=== PATIENT | male | born 1975 | race Hispanic/Latino ===

== ENCOUNTER 2017-08-10 07:44 | Emergency (ER) | payer OTHER ==
[~2017-08-10] VITALS: Ht 170.2 cm; Wt 81.6 kg
[~2017-08-10 07:44] MED LIST: VITAMIN B121000 MC2 PO; VITAMIN D1000 IU PO; ZOFRAN 4 MG TABL4 MG PO
[2017-08-10 08:53] LABS: ABSOLUTE BASOPHIL COUNT 0 /CUMM (0.0-0.2); ABSOLUTE EOSINOPHIL COUNT 0 /CUMM (0.0-0.7); ABSOLUTE GRANULOCYTE CT 5.7 /CUMM (1.4-6.5); ABSOLUTE LYMPH COUNT 0.8 /CUMM (1.2-3.4); BASOPHIL % 0.2 % (0.0-2.0); EOSINOPHIL % 0.2 % (0-5); GRANULOCYTE % 76.2 % (42.2-75.2); HEMATOCRIT 45.6 % (42-52); MEAN CORPUSCULAR HGB 30.2 PG (27.0-31.0); MEAN CORPUSCULAR HGB CONC 33.8 G/DL (33.0-37.0); MEAN CORPUSCULAR VOLUME 89.4 FL (80.0-94.0); MEAN PLATELET VOLUME 8.2 FL (7.4-10.4); PLATELET COUNT 194 /CUMM (130-400); RBC DISTRIBUTION WIDTH 13.4 % (11.5-14.5); WHITE BLOOD CELL COUNT 7.5 /CUMM (4.8-10.8)
--- NOTE | 2017-08-10 09:40 | ED GI/GU/ABDOMINAL COMPLAINT ---
See Addendum History of Present Illness General Chief Complaint: Nausea, Vomiting, Diarrhea Stated Complaint: NVD XS 1 WEEK WHITNEY Source: patient, family, old records Exam Limitations: no limitations Vital Signs & Intake/Output Vital Signs & Intake/Output Vital Signs Date Time Temp Pulse Resp B/P B/P Pulse O2 O2 Flow FiO2 Mean Ox Delivery Rate 08/10 1341 100.3 112 20 107/67 98 08/10 1125 98.1 111 18 115/69 96 08/10 0756 98.8 106 18 113/79 96 Room Air Allergies Coded Allergies: meperidine (From DEMEROL) (Intermediate, HIVES 08/10/17) Reconcile Medications Atorvastatin Calcium 40 MG TABLET 1 TAB PO DAILY chol (Reported) Cholecalciferol (Vitamin D3) 1,000 UNIT TABLET 1 TAB PO DAILY SUPLLEMENT ( Reported) Ciprofloxacin HCl (Cipro) 500 MG TABLET 1 TAB PO BID diarrhea Cyanocobalamin (Vitamin B12) 1,000 MCG TAB 1 TAB PO DAILY SUPPLEMENT ( Reported) Famotidine (Pepcid) 20 MG TABLET 1 TAB PO BID stomach upset Hyoscyamine Sulfate (Levsin-Sl) 0.125 MG TAB.SUBL 1-2 TAB SL Q4P PRN abdominal cramps Loperamide HCl (Imodium A-D) 2 MG TABLET 0 PO SEE ADMIN CRITERIA PRN diarrhea 1 tab after each loose stool up to 7 per day Metronidazole (Flagyl) 500 MG TABLET 1 TAB PO BID giardia Ondansetron (Zofran Odt) 4 MG TAB.RAPDIS 1 TAB SL TID nausea Ondansetron (Zofran 4 MG Tablet) 4 MG TAB 1 TAB PO Q6 NAUSEA Triage Note: REPORTS N/V/D X 2 WEEKS. ALSO REPORTS HEADACHE THAT STARTED YESTERDAY WITH NO IMPROVEMENT. HE ALSO HAS 2 DOGS THAT WERE RECENTLY DIAGNOSED WITH GIARDIA AND HE IS WONDERING IF HE MAY HAVE CONTRACTED THE SAME. ALSO REPORTS INTERMITTENT PAIN IN HIS RLQ. Triage Nurses Notes Reviewed? yes Onset: Last week Duration: day(s):, constant, continues in ED, getting worse Timing: recent history Quality/Severity: cramping, mild Location: generalized abdomen Radiation: no radiation Activities at Onset: eating Prior Abdominal Problems: none Past Sexual History: Unobtainable at this time Modifying Factors: Worsens With: eating. Associated Symptoms: abdominal pain, diarrhea, fever/chills, loss of appetite, nausea/vomiting HPI: 1 week prior to admission patient complains of frequent loose watery stool abdominal cramping decreased appetite fever chills. Reports eating shrim melquiades landin and his dogs being diagnosed with giardia recently. Shortly prior to admission he awoke with worsening chills nausea vomiting abdominal cramping. He denies chest pain cough shortness of breath headache dysuria rash bleeding recent antibiotics recent travel. Past History Travel History Traveled to [place] past 21 day No Medical History Any Pertinent Medical History? see below for history Cardiovascular: HIGH CHOLESTEROL Surgical History Surgical History: non-contributory Psychosocial History What is your primary language Barbadian Tobacco Use: Never used Family History Hx Contributory? No Review of Systems Review of Systems Constitutional: Reports: see HPI, malaise. EENTM: Reports: no symptoms. Respiratory: Reports: no symptoms. Cardiovascular: Reports: no symptoms. GI: Reports: see HPI, abdominal pain, diarrhea, nausea, vomiting. Genitourinary: Reports: no symptoms. Musculoskeletal: Reports: no symptoms. Skin: Reports: no symptoms. Neurological/Psychological: Reports: no symptoms. Hematologic/Endocrine: Reports: no symptoms. Immunologic/Allergic: Reports: no symptoms. All Other Systems: Reviewed and Negative Physical Exam Physical Exam General Appearance: well developed/nourished, alert, awake, anxious, moderate distress, thin Head: atraumatic, normal appearance Eyes: Bilateral: normal appearance, PERRL, EOMI, normal inspection. Ears, Nose, Throat, Mouth: hearing grossly normal, moist mucous membrane Neck: normal inspection, supple, full range of motion, normal alignment Respiratory: normal breath sounds, chest non-tender, no respiratory distress, quiet respiration, lungs clear Cardiovascular: regular rate/rhythm, normal peripheral pulses, norml femoral pulses equa Peripheral Pulses: 4+ carotid (R), 4+ carotid (L) Gastrointestinal: normal bowel sounds, soft, non-tender, no organomegaly Male Genitals: normal genitalia Back: normal inspection, normal range of motion, no vertebral tenderness Extremities: normal range of motion, no ligament instability Neurologic/Psych: no motor/sensory deficits, awake, alert, oriented x 3, normal gait, 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 No Sepsis Present: No Sepsis Focused Exam Completed? No Progress Differential Diagnosis: diverticulitis, gastritis, pancreatitis, PUD/GERD Plan of Care: Orders Procedure Date/time Status STOOL: R/O YERSINIA 08/10 824 Active STOOL:R/O VIBRIO 08/10 824 Active CULTURE,STOOL 08/10 824 Active OVA AND PARASITE ANTIGENS 08/10 824 Active LIPASE 08/10 824 Complete COMPREHENSIVE METABOLIC PANEL 08/10 824 Complete CBC WITHOUT DIFFERENTIAL 08/10 824 Complete Laboratory Tests 08/10/17 0835: Anion Gap 11, Estimated GFR > 60, BUN/Creatinine Ratio 12.7, Glucose 109 H, Calcium 9.3, Total Bilirubin 0.9, AST 18, ALT 37, Alkaline Phosphatase 90, Total Protein 7.3, Albumin 4.2, Globulin 3.1, Albumin/Globulin Ratio 1.4, Lipase 117, CBC w Diff NO MAN DIFF REQ, RBC 5.10, MCV 89.4, MCH 30.2, MCHC 33.8, RDW 13.4, MPV 8.2, Gran % 76.2 H, Lymphocytes % 10.4 L, Monocytes % 13.0 H, Eosinophils % 0.2, Basophils % 0.2, Absolute Granulocytes 5.7, Absolute Lymphocytes 0.8 L, Absolute Monocytes 1.0 H, Absolute Eosinophils 0, Absolute Basophils 0 Microbiology 08/10 112 STOOL: Vibrio Culture - RECD 08/11 1119 STOOL: Yersinia Culture - RECD 08/11 1119 STOOL: Stool Culture - RECD 08/10 824 STOOL: Cryptosporidium Antigen - ORD 08/10 824 STOOL: Giardia Antigen (DANIEL) - ORD Initial ED EKG: none Departure Departure Time of Disposition: 1314 Disposition: HOME OR SELF CARE Condition: Stable Clinical Impression Primary Impression: Nausea, vomiting, and diarrhea Secondary Impressions: Dehydration Referrals: Reagan POZO,Hugo Coon (PCP/Family) Additional Instructions: Clear liquids for 12-24 hours until better Departure Forms: Customer Survey General Discharge Information Prescriptions: Current Visit Scripts Ciprofloxacin HCl (Cipro) 1 TAB PO BID #14 TAB Metronidazole (Flagyl) 1 TAB PO BID #14 TAB Hyoscyamine Sulfate (Levsin-Sl) 1-2 TAB SL Q4P PRN abdominal cramps #30 TAB Famotidine (Pepcid) 1 TAB PO BID #30 TAB Ondansetron (Zofran Odt) 1 TAB SL TID #10 TAB Loperamide HCl (Imodium A-D) 0 PO SEE ADMIN CRITERIA PRN diarrhea #24 TAB 1 tab after each loose stool up to 7 per day Loperamide HCl (Imodium A-D) 0 PO SEE ADMIN CRITERIA PRN diarrhea #24 TAB 1 tab after each loose stool up to 7 per day
[2017-08-10] MEDS ORDERED: ZOFRAN ODT4 M1 SL (13:21)
[2017-08-10] MEDS ORDERED: LEVSIN-SL0.125 MG SL (13:21)
[2017-08-10] MEDS ORDERED: IMODIUM A-D2 M1 PO (13:21)
[2017-08-10] MEDS ORDERED: FLAGYL500 MG PO (13:21)
[2017-08-10] MEDS ORDERED: PEPCID20 M1 PO (13:21)
[2017-08-10] MEDS ORDERED: CIPRO500 M1 PO (13:21)
[2017-08-10 13:41] VITALS: BP 107/67
[2017-08-10] MEDS ORDERED: ATORVASTATIN CA40 M1 PO (13:42)
== END 2017-08-10 14:11 ==
LOC: ERH 07:44
PROVIDERS: Emergency Medicine
DX: R11.2 Nausea with vomiting, unspecified (principal); R19.7 Diarrhea, unspecified; E86.0 Dehydration
CPT/HCPCS: 87045; 87328; 87329; 96361; 96374; 99291; J2405

== ENCOUNTER 2017-08-19 13:20 | Inpatient (IN) | payer OTHER ==
[~2017-08-19] VITALS: Ht 170.2 cm; Wt 81.6 kg
[~2017-08-19 13:20] MED LIST changes: +ATORVASTATIN CA40 M1 PO; +CIPRO500 M1 PO; +FLAGYL500 MG PO; +IMODIUM A-D2 M1 PO; +LEVSIN-SL0.125 MG SL; +PEPCID20 M1 PO; +VITAMIN B-121000 MC3 PO; -VITAMIN B121000 MC2 PO; -VITAMIN D1000 IU PO; +VITAMIN D31000 UNI2 PO; +ZOFRAN ODT4 M1 SL
--- NOTE | 2017-08-19 13:25 | ED GI/GU/ABDOMINAL COMPLAINT ---
History of Present Illness General Chief Complaint: Nausea, Vomiting, Diarrhea Stated Complaint: +N,+V,+D Source: patient Exam Limitations: no limitations Vital Signs & Intake/Output Vital Signs & Intake/Output Vital Signs Date Time Temp Pulse Resp B/P B/P Pulse O2 O2 Flow FiO2 Mean Ox Delivery Rate 08/19 1928 100.8 113 20 83/54 95 Room Air 08/19 1809 99.6 113 20 112/53 95 Nasal 3.0L Cannula 08/19 1807 95 Nasal Cannula 08/19 1745 115 92/58 08/19 1730 113 89/66 /08 1715 110 88/50 /08 1700 108 87/49 /08 1645 115 97/53 /08 1633 130 95/45 96 08 1620 103.0 08 1600 127 82/47 91 Room Air 08/19 1549 103.0 123 18 89/44 94 Room Air Room Air 08/19 1323 100.2 130 20 92/57 95 Room Air Allergies Coded Allergies: meperidine (From DEMEROL) (Intermediate, HIVES 08/10/17) Reconcile Medications Atorvastatin Calcium 40 MG TABLET 1 TAB PO DAILY chol (Reported) Cholecalciferol (Vitamin D3) 1,000 UNIT TABLET 1 TAB PO DAILY VITAMIN SUPPORT (Reported) Cyanocobalamin (Vitamin B-12) 1,000 MCG TABLET 1 TAB PO DAILY VITAMIN SUPPORT (Reported) Triage Nurses Notes Reviewed? yes Onset: Abrupt Duration: week(s): (3) Timing: recent history Quality/Severity: moderate, severe No Modifying Factors: none HPI: 42 year old male presents to the emergency room for diarrhea. He states he has been having diarrhea for three weeks. He came to the ER last week and was given a seven day course of cipro for which he stopped with two days left because he was told by Dr. Kirk that his cultures were negative. He states he felt better over the weekend but was still having diarrhea. This morning at 3:00 AM he suddenly got worse, had more diarrhea and has been having multiple episodes since. He states his diarrhea was was green at first then it became a gel-like translucent brown. His current diarrhea has a malodorous smell to it which it had not had before. He has associated nausea, vomiting, headache, chills, fever, and is unable to keep food down. He denies recent travel, sick contact, blood in his stool, blood in his vomit, or abdominal pain. He was camping a few weeks back in [place]. (Urbano Sampson) Past History Travel History Traveled to [place] past 21 day No Medical History Any Pertinent Medical History? see below for history Cardiovascular: HIGH CHOLESTEROL Surgical History Surgical History: non-contributory Psychosocial History What is your primary language Yemeni Family History Hx Contributory? No (Urbano Sampson) Review of Systems Review of Systems Constitutional: Reports: see HPI. EENTM: Reports: no symptoms. Respiratory: Reports: no symptoms. Cardiovascular: Reports: no symptoms. GI: Reports: see HPI. Genitourinary: Reports: no symptoms. Musculoskeletal: Reports: no symptoms. Skin: Reports: no symptoms. Neurological/Psychological: Reports: no symptoms. Hematologic/Endocrine: Reports: no symptoms. Immunologic/Allergic: Reports: no symptoms. All Other Systems: Reviewed and Negative (Urbano Sampson) Physical Exam Physical Exam General Appearance: well developed/nourished, mild distress Head: atraumatic, normal appearance Eyes: Bilateral: normal appearance. Ears, Nose, Throat, Mouth: hearing grossly normal Neck: normal inspection, full range of motion Respiratory: no respiratory distress, decreased breath sounds (bibasilar) Cardiovascular: regular rate/rhythm, tachycardia Gastrointestinal: soft, non-tender Back: normal inspection Extremities: normal range of motion Neurologic/Psych: no motor/sensory deficits, awake, alert, oriented x 3 Skin: intact, normal color, no rashes Core Measures ACS in differential dx? No Sepsis Present: No Sepsis Focused Exam Completed? No (Urbano Sampson) ED Sepsis Exam Date of Focused Sepsis Exam: 08/19/17 Time of Focused Sepsis Exam: 1630 (approx) Sepsis Cardiac Exam: Tachycardia Sepsis Resp Exam: CTA Sepsis Cap Refill Exam: <2 Sec Sepsis Peripheral Pulse Exam: Normal Sepsis Peripheral Pulse Location: Radial Sepsis Skin Color Exam: Normal for Ethnicity Skin Temp/Moisture Exam: Warm/Dry (Urbano Sampson) Progress Differential Diagnosis: appendicitis, diverticulitis, C. difficile colitis, Campylobacter, pneumonia, sepsis, Plan of Care: Orders Procedure Date/time Status Nothing by Mouth 08/20 B Active CULTURE,STOOL 05/08 1931 Active HIV (Reflex to HIVCQ) 08/19 1931 Active Add-on Test (ER Only) 08/19 1711 Active Patient Data 08/19 1659 Active EKG 08/19 1627 Active LACTIC ACID 08/19 1625 Complete CULTURE,STOOL 08/19 1613 Active ED Holding Orders 08/19 1611 Active Admit to inpatient 08/19 1611 Active Code Status 08/19 1611 Active OVA AND PARASITE ANTIGENS 08/19 1340 Active C.DIFFICILE 08/19 1340 Active Intake & Output 08/19 1330 Active BLOOD CULTURE 08/19 1325 Active LIPASE 08/19 1325 Complete LACTIC ACID 08/19 1325 Complete COMPREHENSIVE METABOLIC PANEL 08/19 1325 Complete CBC WITHOUT DIFFERENTIAL 08/19 1325 Complete AMYLASE 08/19 1325 Complete Isolation 08/19 UNK Active Current Medications Sig/Luli Start time Last Medication Dose Stop Time Status Admin Azithromycin 500 MG DAILY 08/20 0900 UNVr (Zithromax) Sodium Chloride 250 ML (Normal Saline 0.9%) Metronidazole 500 MG IQ8 08/20 0000 UNVr (Flagyl) N/A 1 UNIT (No Carrier) Vancomycin HCl 500 MG Q6 08/19 2359 UNVr Metoclopramide HCl 10 MG ONCE ONE 08/19 1915 UNVr (Reglan) 08/19 191 Azithromycin 500 MG ONCE ONE 08/19 1615 CAN (Zithromax) 08/19 1714 Sodium Chloride 250 ML (Normal Saline 0.9%) Vancomycin HCl 1,000 MG ONCE ONE 08/19 1615 CAN Sodium Chloride 250 ML 08/19 171 (Normal Saline 0.9%) Laboratory Tests 08/19/17 1600: Lactic Acid 1.4 08/19/17 1402: Anion Gap 14, Estimated GFR > 60, BUN/Creatinine Ratio 12.3, Glucose 129 H, Lactic Acid 1.8, Calcium 8.1 L, Total Bilirubin 1.1, AST 41, ALT 137 H, Alkaline Phosphatase 63, Total Protein 6.0 L, Albumin 3.4 L, Globulin 2.6, Albumin/Globulin Ratio 1.3, Amylase 87, Lipase 98, CBC w Diff MAN DIFF ORDERED, RBC 4.96, MCV 89.6, MCH 30.4, MCHC 33.9, RDW 13.5, MPV 8.1, Gran % 94.5 H, Lymphocytes % 2.7 L, Monocytes % 2.7, Eosinophils % 0, Basophils % 0.1, Absolute Granulocytes 18.6 H, Segmented Neutrophils 78 H, Band Neutrophils 16 H, Absolute Lymphocytes 0.5 L, Lymphocytes 4 L, Monocytes 1 L, Absolute Monocytes 0.5, Absolute Eosinophils 0, Basophils 1, Absolute Basophils 0, Platelet Estimate ADEQUATE, Normocytic RBCs VERIFIED, Normochromic RBCs VERIFIED Microbiology 08/19 1931 STOOL: Stool Culture - ORD 08/19 1613 STOOL: Clostridium difficile Toxin A & B - RECD 08/19 1613 STOOL: Stool Culture - RECD 08/19 1600 BLOOD: Blood Culture - RECD 08/19 1402 BLOOD: Blood Culture - RECD 08/19 1340 GI: Cryptosporidium Antigen - ORD 08/19 1340 GI: Giardia Antigen (DANIEL) - ORD Diagnostic Imaging: Viewed by Me: Radiology Read, CT Scan. Discussed w/RAD: Radiology Read, CT Scan. Radiology Impression: PATIENT: MEGAN WHELAN PRESENT AGE : 42 PATIENT ACCOUNT NO: [id number] : 74 LOCATION: [facility] ORDERING PHYSICIAN: Urbano BROCK SERVICE DATE: 08/19/17 EXAM TYPE: RAD - XRY-CHEST XRAY, TWO VIEWS EXAMINATION: XR CHEST CLINICAL INFORMATION: Diminished breast sounds on the right side. COMPARISON: CT scan of the abdomen and pelvis dated 08/19/2017. TECHNIQUE: 2 views of the chest were obtained. FINDINGS: The cardiomediastinal silhouette is within normal limits in size. Lungs bilaterally are symmetrically expanded and demonstrate minimal bibasilar atelectatic changes. No focal consolidation, effusion or pneumothorax is seen. Bony structures are unremarkable. IMPRESSION: Mild bibasilar subsegmental atelectasis. DICTATED BY: Sherrie Alejandre MD DATE/TIME DICTATED:08/19/171822 GRAPHICS PRODUCTION SPECIALIST:AUDREY DATE/TIME TRANSCRIBED:08/19/171822 CONFIDENTIAL, DO NOT COPY WITHOUT APPROPRIATE AUTHORIZATION. <Electronically signed in Other Vendor System> SIGNED BY: Sherrie Alejandre MD 08/19/171826 Initial ED EKG: normal sinus rhythm, rate (106) Comments: 08/19/2017 3:59:13 PM Patient has gotten 2 L of IV normal saline. Another 2 L have been ordered. IV Tylenol ordered. Infectious disease was consult sudden change in waiting to hear back. Patient is alert and oriented and mentating. Patient be placed Q15 minute vital signs for evaluation of blood pressure. 08/19/2017 4:08:[address] mendoza from infectious disease. He agrees that at this time we will cover the patient with vancomycin and azithromycin. Stool samples should be sent off before antibiotics started. Patient was seen and evaluated by Dr. Parra as well. (Urbano Sampson) Comments: I saw and personally examined the patient and I agree with the PAs evaluation. He has had profound diarrhea and fever. He was empirically treated with Flagyl and Cipro. Now comes in with hypotension related to volume loss. Infectious disease consultation was obtained. He was treated with 5 L of IV fluids. He is being admitted to the ICU for further care. (Fidel GARCIA,Braden Cruz) Departure Departure Disposition: STILL A PATIENT Condition: Stable Clinical Impression Primary Impression: Sepsis Referrals: Reagan POZO,Hugo Coon (PCP/Family) Departure Forms: Customer Survey General Discharge Information Admission Note Spoke With: Emmanuel Beckman MD Documentation of Exam: Documentation of any treatments & extenuating circumstances including Concerns Regarding Discharge (functional status, medication knowledge or non-compliance, living conditions, etc.) that warrant an admission rather than observation: IV fluid. IV antibiotics. Infectious disease consultation. Patient hypotensive here in the emergency room. He will require aggressive IV hydration. Medically not safe for discharge. dr bailey saw pt. recommends PO vancomycin, IV azithromycin, IV rocephin, IV flagyl. will follow stool samples. (Urbano Sampson) PA/SPRINKLER DRIVER Co-Sign Statement Statement: ED Attending supervision documentation- [X] I saw and evaluated the patient. I have also reviewed all the pertinent lab results and diagnostic results. I agree with the findings and the plan of care as documented in the PA's/SPRINKLER DRIVER's documentation. [] I have reviewed the ED Record and agree with the PA's/SPRINKLER DRIVER's documentation. [] Additions or exceptions (if any) to the PAs/SPRINKLER DRIVER's note and plan are summarized below: [] Patient tested positive for Campylobacter. He has positive vomiting, headache, and lethargy. He is hypotensive in the Emergency Department. He is currently receiving IV fluids. Infectious disease consultation was requested (Braden Parra DO) Critical Care Note Critical Care Note Critical Care Time: 30-74 min (45) (Miguel BROCK,Urbano)
[2017-08-19 14:21] LABS: ABSOLUTE BASOPHIL COUNT 0 /CUMM (0.0-0.2); ABSOLUTE EOSINOPHIL COUNT 0 /CUMM (0.0-0.7); ABSOLUTE GRANULOCYTE CT 18.6 /CUMM (1.4-6.5); ABSOLUTE LYMPH COUNT 0.5 /CUMM (1.2-3.4); ABSOLUTE MONOCYTE COUNT 0.5 /CUMM (0.10-0.60); BASOPHIL % 0.1 % (0.0-2.0); EOSINOPHIL % 0 % (0-5); GRANULOCYTE % 94.5 % (42.2-75.2); HEMATOCRIT 44.5 % (42-52); MEAN CORPUSCULAR HGB 30.4 PG (27.0-31.0); MEAN CORPUSCULAR HGB CONC 33.9 G/DL (33.0-37.0); MEAN CORPUSCULAR VOLUME 89.6 FL (80.0-94.0); MEAN PLATELET VOLUME 8.1 FL (7.4-10.4); PLATELET COUNT 227 /CUMM (130-400); RBC DISTRIBUTION WIDTH 13.5 % (11.5-14.5); RED BLOOD CELL CT 4.96 /CUMM (4.70-6.10); WHITE BLOOD CELL COUNT 19.7 /CUMM (4.8-10.8)
--- NOTE | 2017-08-19 16:59 | History & Physical ---
Shahana POZO,[facility] 08/19/17 3268: General Information and HPI MD Statement: I have seen and personally examined MEGAN WELSH and documented this H&P. The patient is a 42 year old M who presented with a patient stated chief complaint of [nausea, vomiting, diarrhea]. Source of Information: patient Exam Limitations: no limitations History of Present Illness: 42-year-old gentleman with past medical history of hyperlipidemia came to [facility] with complaints of nausea, vomiting, diarrhea for the past 3 weeks According to the patient and his patient was in usual state of health until 3 weeks ago. Patient has 2 dogs one of them had diarrhea and found to have Giardia and both were treated. Since the patient had diarrhea about 2-3 loose bowel movements every day associated with abdominal pain on and off. Patient came to [facility] on 10 August and was sent home with Samreen and Sanjuanita. Patient was seen by his primary care physician Dr. Coker's last Friday who suggested to discontinue ciprofloxacin since his lab works came negative and patient condition improved. Since last Friday patient developed nausea, vomiting [more than 5 episodes], loose stools greenish in color not associated with 3-4 episodes every day. Patient also felt weak since he is not able to eat anything. He endorses fever with chills last Friday and today before coming to [facility]. Patient also complains of 10 x 10 headache for the past 2-3 days. Patient endorses eating seafood a month ago following which she developed these symptoms. He denied rash, joint pain, shortness of breath, chest pain, travel outside the [place]/headache, fall, loss of consciousness. Past surgical history-[place] Allergies/Medications Allergies: Coded Allergies: meperidine (From DEMEROL) (Intermediate, HIVES 08/10/17) Home Med list Atorvastatin Calcium 40 MG TABLET 1 TAB PO DAILY chol (Reported) Cholecalciferol (Vitamin D3) 1,000 UNIT TABLET 1 TAB PO DAILY VITAMIN SUPPORT (Reported) Cyanocobalamin (Vitamin B-12) 1,000 MCG TABLET 1 TAB PO DAILY VITAMIN SUPPORT (Reported) Compliance With Home Meds: GOOD Past History Travel History Traveled to [place] past 21 day No Medical History Cardiovascular: HIGH CHOLESTEROL Gastrointestinal: NONE Hepatic: NONE Musculoskeletal: NONE Surgical History Surgical History: none, non-contributory Past Family/Social History Family History Relations & Conditions if any Relation not specified for: *No pertinent family history Psychosocial History Where do you live? Home Who Do You Live With? spouse Services at Home: None Primary Language: Iraqi Smoking Status: Never Smoked ETOH Use: occasional use Functional Ability ADLs Independent: dressing, eating, toileting, bathing. Ambulation: independent IADLs Independent: shopping, housework, finances, food prep, telephone, transportation , medication admin. Review of Systems Review of Systems Constitutional: Reports: no symptoms, see HPI. Cardiovascular: Reports: no symptoms. Respiratory: Reports: no symptoms. GI: Reports: abdominal pain, diarrhea, nausea. Exam & Diagnostic Data Last 24 Hrs of Vital Signs/I&O Vital Signs Date Time Temp Pulse Resp B/P B/P Pulse O2 O2 Flow FiO2 Mean Ox Delivery Rate 08/20 2015 101.5 130 24 122/59 92 Room Air 08/20 2007 100.8 08/19 2000 122 98/58 08/19 1929 100.8 113 20 83/54 95 Room Air 08/19 1900 115 99/61 08/19 1830 116 108/62 08/19 1809 99.6 113 20 112/53 95 Nasal 3.0L Cannula 08/19 1807 95 Nasal Cannula 08/19 1745 115 92/58 08 1730 113 89/66 08 1715 110 88/50 08 1700 108 87/49 08 1645 115 97/53 08 1633 130 95/45 96 08 1620 103.0 08/19 1600 127 82/47 91 Room Air 08/19 1549 103.0 123 18 89/44 94 Room Air Room Air 08/19 1323 100.2 130 20 92/57 95 Room Air Intake & Output 08/19 1600 /08 0800 08 0000 Intake Total 0 Output Total 0 Balance 0 Intake, Oral 0 Output, Urine 0 Physical Exam General Appearance Alert, Oriented X3, Cooperative, No Acute Distress HEENT Atraumatic, PERRLA, EOMI, oral mucosa-mild dehydration Cardiovascular Regular Rate, Normal S1, Normal S2, No Murmurs Lungs Clear to Auscultation Abdomen Soft, No Tenderness, bowel sounds heard Neurological Normal Speech, Strength at 5/5 X4 Ext, Normal Tone, Sensation Intact, Cranial Nerves 3-12 NL Assessment/Plan Assessment: 42-year-old gentleman with past medical history of hyperlipidemia came to [place] [facility] with complaints of nausea, vomiting, diarrhea for the past 3 weeks Admission vitals Temperature 100.3Temperature 100.2-- 103, pulse rate 127, blood pressure 82/47, saturating 91 at roomair Admission labs WBC 19.7, granulocytes 94.5, band neutrophils 16 hemoglobin 15.1, platelet count 227, Sodium 140, potassium 4.1, BUNs 16, creatinine 1.3, glucose 129, lactic acid 1.4 , calcium 8.1, alkaline phosphatase 63, AST 137, AST 41, C-reactive protein 2.1, Amylase 87, lipase 98 Stool culture-08/11/2017 Positive for Campylobacter with no Salmonella/Shigella/yersinia/vibrio Pending Blood culture, C. difficile, cryptosporidium antigen, Giardia antigen, stool culture. ED treatment Normal saline bolus 3 L, Phenergan once, Tylenol IV once. ID consulted who recommended vancomycin and azithromycin and sent stool cultures. Assessment and plan: 1. Septic shock- Diarrhea with nausea and vomiting-3 weeks-stool positive for Campylobacter tested on 08/13/2017. History of exposure to Giardia infection. Differential diagnosis I consider at this point low back to infection/Giardia infection/C. difficil, colitis, diverticulitis. 2. Hypotension 3. High WBC count with bands neutrophils and left shift * Admitted to ICU in view of sepsis with hypotension * Fluid resuscitation-normal saline@150 mL per hour. Patient appears dehydrated secondary to vomiting and diarrhea. * Vomiting-Tigan 200 every 4 when necessary. * Abdominal pain-patient got dicyclomine in ED. CAT scan of the abdomen showed abnormal colon with diffuse mural thickening and mucosal hyperenhancement and mesenteric hyponatremia from rectum to ileocecal valve consistent with diffuse colitis. * Patient seen by infectious disease who suggested to send stool cultures, C. difficile, HIV. We will start him on vancomycin/Flagyl/azithromycin and 1 dose of ceftriaxone. Vancomycin and Flagyl for complicated C. difficile coverage, azithromycin for Campylobacter treatment. Patient recently treated for the same symptoms with ciprofloxacin. * Code-full code * Diet-nothing by mouth * DVT prophylaxis-heparin As Ranked By This Provider Problem List: 1. Sepsis 2. Nausea, vomiting, and diarrhea 3. Abdominal pain Core Measures/Misc (12/29) Acute Coronary Syndrome ACS Diagnosis: No Congestive Heart Failure Congestive Heart Failure Diagnosis No Cerebrovascular Accident CVA/TIA Diagnosis: No VTE (View Protocol) VTE Risk Factors Age>40 No Mechanical VTE Prophylaxis d/t Other No VTE Pharm Prophylaxis d/t Other Sepsis (View protocol) Sepsis Present: Yes Trina POZO,[facility] 08/19/174: Resident Review Statement Resident Statement: examined this patient, discussed with summer intern, agreed with summer intern, discussed with family, discussed with nursing Other Findings: Mr. Welsh is 42 year old male no significant PMH presented to ED with CC of diarrhea 3 weeks, nausea, vomiting, headache 1 day. Patient presented to ED on August 10 for diarrhea and right lower quadrant pain, stool culture was sent and patient was discharged on ciprofloxacin and Flagyl. Patient took antibiotic for 4 days and was discontinued with on Tuesday 08/15, Friday he started to have green loose stool that progressed to brown watery diarrhea not associated with mucus or blood however patient reported mild odor. He also reported fever, chills, nausea and vomiting since 2:30 AM. Stool culture was positive for Campylobacter, negative for vibrio, Shigella and Salmonella. History of shrimp pizza 3 weeks ago prior to onset of his symptoms. Hx of Girdia in his 2 dogs. Problem list #Diarrhea for 3 weeks that Jaclyn present infection was, antibiotic related C. difficile, inflammatory colitis #Septic shock due to colitis Plan -Admit to ICU for close monitoring -Vital signs every hour -Ins and outs strict measurement -IV fluid Ringer lactate running at 200 mL per hour -Repeat lactic acid 4-6 hours -Will obtain HIV and hepatitis panel -Obtain coagulase -Repeat CBC, BMP, magnesium, phosphorus, liver function test in a.m. -Follow-up blood culture, stool culture -Continue antibiotic per ID consultation -GI consultation was placed, discussed with Dr. Rajput the clinical situation and the CAT scan -abdomen and pelvis results, patient will be evaluated in a.m., agreed on the current management. ##Please call GI if patient develops any new concerning symptoms or signs -Discussed with surgery Dr. Clemens the clinical situation and the CAT scan abdomen and pelvis results, patient will be evaluated in a.m., agreed to the current management -Diet nothing by mouth -DVT prophylaxis gallops
--- NOTE | 2017-08-19 17:38 | Cons- Infect Disease ---
General Information and HPI Consulting Request Date of Consult: 08/19/17 Requested By: Dr. Casiano Reason for Consult: Recurrent diarrhea, fever and leukocytosis Source of Information: patient, family, old records History of Present Illness: This is a 42-year-old man with no significant past medical history, seen in the emergency room 9 days prior to admission with 1 week of diarrhea and more acute onset of nausea, vomiting and headache, found to have a low-grade fever of 100.3 and a white blood cell count of 7.5, discharged on Ciprofloxacin and Flagyl, which he discontinued after 4 days, after his stool was found to be positive for Campylobacter, with resolution of his nausea and vomiting and improvement in his diarrhea, admitted today after returning to the emergency room with recurrent nausea, vomiting and headache, worsening diarrhea and chills. On admission he was febrile to 103, with a blood pressure of 92/57 and a heart rate of 130. Laboratory data revealed a white blood cell count of 20,000, with 78 segs and 16 bands, BUN/creatinine 16 and 1.3, AST/ALT 41 and 137. He denies any recent travel or ill contacts. He has not eaten any lulu lettuce over the few weeks. His 2 dogs were diagnosed with Giardia several weeks prior to admission. Allergies/Medications Allergies: Coded Allergies: meperidine (From DEMEROL) (Intermediate, HIVES 08/10/17) Home Med List: Atorvastatin Calcium 40 MG TABLET 1 TAB PO DAILY chol (Reported) Cholecalciferol (Vitamin D3) 1,000 UNIT TABLET 1 TAB PO DAILY VITAMIN SUPPORT (Reported) Cyanocobalamin (Vitamin B-12) 1,000 MCG TABLET 1 TAB PO DAILY VITAMIN SUPPORT (Reported) Past History Travel History Traveled to [place] past 21 day No Medical History Cardiovascular: HIGH CHOLESTEROL Musculoskeletal: degen joint disease Surgical History Surgical History: non-contributory Review of Systems Review of Systems Cardiovascular: Denies: chest pain. Respiratory: Reports: short of breath. Genitourinary: Reports: no symptoms. Musculoskeletal: Reports: joint pain (left knee). All Other Systems: Reviewed and Negative Exam & Diagnostic Data Last 24 Hrs of Vital Signs/I&O Vital Signs Date Time Temp Pulse Resp B/P B/P Pulse O2 O2 Flow FiO2 Mean Ox Delivery Rate 08/19 1700 108 87/49 08/19 1645 115 97/53 08/19 1633 130 95/45 96 08/19 1620 103.0 08/19 1600 127 82/47 91 Room Air 08/19 1549 103.0 123 18 89/44 94 Room Air Room Air 08/19 1323 100.2 130 20 92/57 95 Room Air Intake & Output 08/19 1600 08/19 0800 08/19 0000 Intake Total 0 Output Total 0 Balance 0 Intake, Oral 0 Output, Urine 0 Physical Exam Other Physical Findings: He is awake and alert in no acute distress. T-max 103. Blood pressure 87/49. Heart rate 108. Skin reveals no rash. HEENT exam is negative. Neck is supple with no adenopathy. Lungs are clear. Heart regular rhythm with no murmur. Abdomen is soft, mild tenderness on palpation of the left lower quadrant, with no guarding or rebound, positive bowel sounds. Back no CVA tenderness. Extremities no cyanosis, clubbing or edema; no joint inflammation. Neuro is without focality. Last 24 Hours of Lab Results: Laboratory Tests 08/19 08/19 1600 1402 Chemistry Sodium (137 - 145 mmol/L) 140 Potassium (3.5 - 5.1 mmol/L) 4.1 Chloride (98 - 107 mmol/L) 102 Carbon Dioxide (22 - 30 mmol/L) 24 Anion Gap (5 - 16) 14 BUN (9 - 20 mg/dL) 16 Creatinine (0.7 - 1.2 mg/dL) 1.3 H Estimated GFR (>60 ml/min) > 60 BUN/Creatinine Ratio (7 - 25 %) 12.3 Glucose (65 - 99 mg/dL) 129 H Lactic Acid (0.7 - 2.1 mmol/L) 1.4 1.8 Calcium (8.4 - 10.2 mg/dL) 8.1 L Total Bilirubin (0.2 - 1.3 mg/dL) 1.1 AST (17 - 59 U/L) 41 ALT (21 - 72 U/L) 137 H Alkaline Phosphatase (< 127 U/L) 63 Total Protein (6.3 - 8.2 g/dL) 6.0 L Albumin (3.5 - 5.0 g/dL) 3.4 L Globulin (1.9 - 4.2 gm/dL) 2.6 Albumin/Globulin Ratio (1.1 - 2.2 %) 1.3 Amylase (30 - 110 U/L) 87 Lipase (23 - 300 U/L) 98 Hematology CBC w Diff MAN DIFF ORDERED WBC (4.8 - 10.8 /CUMM) 19.7 H RBC (4.70 - 6.10 /CUMM) 4.96 Hgb (14.0 - 18.0 G/DL) 15.1 Hct (42 - 52 %) 44.5 MCV (80.0 - 94.0 FL) 89.6 MCH (27.0 - 31.0 PG) 30.4 MCHC (33.0 - 37.0 G/DL) 33.9 RDW (11.5 - 14.5 %) 13.5 Plt Count (130 - 400 /CUMM) 227 MPV (7.4 - 10.4 FL) 8.1 Gran % (42.2 - 75.2 %) 94.5 H Lymphocytes % (20.5 - 51.1 %) 2.7 L Monocytes % (1.7 - 9.3 %) 2.7 Eosinophils % (0 - 5 %) 0 Basophils % (0.0 - 2.0 %) 0.1 Absolute Granulocytes (1.4 - 6.5 /CUMM) 18.6 H Segmented Neutrophils (42.2 - 75.2 %) 78 H Band Neutrophils (0.0 - 5.0 %) 16 H Absolute Lymphocytes (1.2 - 3.4 /CUMM) 0.5 L Lymphocytes (20.5 - 51.1 %) 4 L Monocytes (1.7 - 9.3 %) 1 L Absolute Monocytes (0.10 - 0.60 /CUMM) 0.5 Absolute Eosinophils (0.0 - 0.7 /CUMM) 0 Basophils (0.0 - 2.0 %) 1 Absolute Basophils (0.0 - 0.2 /CUMM) 0 Platelet Estimate (ADEQUATE) ADEQUATE Normocytic RBCs VERIFIED Normochromic RBCs VERIFIED Last 24 Hours of Hany Results: Blood cultures 2 August 19 pending Stool culture and C. difficile August 19 pending Assessment/Plan Assessment/Plan Impression: This is a 42-year-old man with no significant past medical history, diagnosed with Campylobacter enteritis on an ER visit 9 days prior to admission after presenting with 1 week of diarrhea and more acute onset of nausea, vomiting and headache, treated with Ciprofloxacin and Flagyl for 4 days, with initial improvement, presenting today with recurrent nausea, vomiting and headache, worsening diarrhea and chills, found to be febrile, hypotensive and tachycardic with a leukocytosis and bandemia, mild renal insufficiency and elevated liver enzymes. The etiology of his recurrent diarrhea is unclear. Possibilities include C. difficile, secondary to the recent antibiotics, persistent or worsening Campylobacter infection, possibly secondary to resistance to Ciprofloxacin, which has been described and is increasing in prevalence, another food or waterborne infection, including E. coli 0157, Salmonella or Giardia, or another cause of colitis, for example diverticulitis, appendicitis or inflammatory bowel disease. He will need to be treated empirically for C. difficile, which would be considered fulminant given his hypotension, but would also cover for other intra-abdominal infections pending further evaluation. Of note he is lymphopenic and, though of unclear significance, HIV should be ruled out. Suggestion: 1. Stool for C. difficile 2. Special contact precautions pending above 3. Stool for culture and O&P 4. CT of the abdomen and pelvis 5. Would check an HIV 6. Ensure adequate fluids 7. Begin Vancomycin 500 mg p.o. every 6 hours and Flagyl 500 mg IV every 8 hours 8. Azithromycin 500 mg IV every 24 hours pending above 9. Ceftriaxone 1 g IV 1 dose pending above Consult Acknowledgment - Thank you for your consult request.
--- NOTE | 2017-08-19 18:27 | RADIOLOGY REPORT ---
EXAMINATION: XR CHEST CLINICAL INFORMATION: Diminished breast sounds on the right side. COMPARISON: CT scan of the abdomen and pelvis dated 08/19/2017. TECHNIQUE: 2 views of the chest were obtained. FINDINGS: The cardiomediastinal silhouette is within normal limits in size. Lungs bilaterally are symmetrically expanded and demonstrate minimal bibasilar atelectatic changes. No focal consolidation, effusion or pneumothorax is seen. Bony structures are unremarkable. IMPRESSION: Mild bibasilar subsegmental atelectasis.
--- NOTE | 2017-08-19 18:56 | CT SCAN REPORT ---
EXAMINATION: CT ABDOMEN AND PELVIS WITH CONTRAST CLINICAL INFORMATION: Left lower quadrant pain, diarrhea. Rule out colitis, diverticulitis. COMPARISON: CT scan of the abdomen and pelvis dated 02/24/2014, 09/10/2013. TECHNIQUE: Multidetector CT volumetric acquisition of the abdomen and pelvis was performed after the administration of 95 and mL of intravenous Optiray 320. The data set was reformatted in the sagittal and coronal planes and reviewed on an independent workstation. DLP: 409.89 mGy-cm. FINDINGS: LOWER CHEST: Minimal bibasilar subsegmental atelectasis. LIVER, GALLBLADDER, BILIARY TREE: Liver normal size and attenuation. There is a 0.5 cm low-attenuation mass in hepatic segment 3 (series 2, image 23) and hepatic segment 7 (series 2, image 21) and a tiny 0.3 cm low-attenuation mass in the right lobe of the liver (series 2, image 38), all unchanged dating back to 02/24/2014, consistent with a benign finding, such as multiple cysts. No new or suspicious focal cystic or solid mass or intra-or extrahepatic ductal dilatation. Hepatic and portal veins patent. Gallbladder partially distended and within normal limits. PANCREAS: Normal. No ductal dilatation, mass, or surrounding stranding. SPLEEN: Normal size and appearance. Splenic vein patent. ADRENAL GLANDS AND KIDNEYS: Adrenal glands normal. Kidneys bilaterally symmetric in size and function. There is a 1.2 cm diameter simple cyst in the mid left kidney (series 2, image 42), similar to the previous exam. No new or suspicious focal renal mass, hydronephrosis, nephrolithiasis or perinephric stranding. URETERS AND BLADDER: Ureters decompressed and within normal limits. Bladder partially distended and within normal limits. PELVIC ORGANS: Unremarkable. GASTROINTESTINAL TRACT: The colon is abnormal in appearance with diffuse mural thickening and mucosal hyperenhancement seen involving the entire colon from the rectum to the ileocecal valve. There is also mild mucosal hyperenhancement of the terminal ileum though no abnormal bowel wall thickening or distention of the terminal ileum is seen. There is mild hyperemia in the colonic mesentery. No significant free fluid collection is seen. No evidence of bowel obstruction or perforation is noted. Small bowel loops decompressed and unremarkable. Appendix in right lower quadrant normal. ABDOMINAL WALL: Small fat-containing umbilical hernia. LYMPHOVASCULAR STRUCTURES: Abdominal aorta normal in caliber with mild atherosclerotic calcifications seen. The SMA and BERE are widely patent. As the is patent and unremarkable. No periaortic collections. There are multiple small subcentimeter sized retroperitoneal lymph nodes seen without pathologic enlargement. BONES: Moderate degenerative disc disease at L4-L5 and L5-S1 with grade 1 retrolistheses of L5 on S1. Findings are similar to the previous exam. IMPRESSION: 1. Diffusely abnormal colon with diffuse mural thickening and mucosal hyperenhancement and mesenteric hyperemia extending from the rectum to the ileocecal valve. Findings are consistent with a diffuse colitis: infectious, inflammatory or possibly antibiotic associated colitis. Pseudomembranous colitis may be possible as well in the correct clinical setting. Close clinical correlation requested. 2. Mild mucosal hyperenhancement of the terminal most ileum is seen without bowel wall thickening, likely reactive. 3. Hepatic and left renal lesions, most consistent with cysts. 4. Small fat-containing umbilical hernia.
--- NOTE | 2017-08-19 21:40 | PN- Att Addend ---
Attending Addendum Attending Brief Note 42M no PMH with 3 weeks of diarrhea after going camping, stool culture growing Campylobacter as an outpatient and placed on Cipro/Flagyl, now here with worsening diarrhea, fever 103, WBC 19. Persistently hypotensive in the evening despite fluid resuscitation, now headed to ICU for monitoring. CT shows pancolitis. Abdomen is diffusely tender, patient appears ill. 1. Severe sepsis with hypotension 2. Pancolitis Plan - Admit to ICU - Send C.diff, stool culture, blood culture - Start Azithromycin, Flagyl and PO Vancomycin - Aggressive IV hydration, central line with pressors if persistently hypotensive - ID and GI consults - Monitor lactate - DVT PPx
[2017-08-19 23:00] VITALS: BP 90/54
--- NOTE | 2017-08-19 23:14 | Cons- General Surgery ---
Lucila Johnson 08/19/17 2218: General Information and HPI Consulting Request Date of Consult: 08/19/17 Requested By: Emmanuel Beckman MD Reason for Consult: abd pain Source of Information: patient Exam Limitations: no limitations History of Present Illness: 42yo male with recent history of campylobacter enteritis 9 days ago now presents with abdominal pain, nausea/vomiting, diarrhea and fever for last 24h. Pt was given a 1 week prescription for antibiotics (cipro/flagyl) when seen last on but only took 4 days worth. At his follow-up appointment with his PCP, Dr Kirk, he was instructed to discontinue the antibiotics. At that time he said he was still having multiple loose stools per day. He states that last night he started to have increase in abdominal pain again associated with nausea and vomiting and diarrhea. Deneis blood in stools alothough did notice small amount of blood in vomit. He is unsure of when fevers started. states he feels tired and weak. He denies CP/SOB. Allergies/Medications Allergies: Coded Allergies: meperidine (From DEMEROL) (Intermediate, HIVES 08/10/17) Home Med List: Atorvastatin Calcium 40 MG TABLET 1 TAB PO DAILY chol (Reported) Cholecalciferol (Vitamin D3) 1,000 UNIT TABLET 1 TAB PO DAILY VITAMIN SUPPORT (Reported) Cyanocobalamin (Vitamin B-12) 1,000 MCG TABLET 1 TAB PO DAILY VITAMIN SUPPORT (Reported) Past History Medical History Cardiovascular: HIGH CHOLESTEROL Gastrointestinal: NONE Hepatic: NONE Musculoskeletal: NONE Surgical History Pertinent Surgical History: 1 Family History Relations & Conditions If Any: Relation not specified for: *No pertinent family history Psychosocial History Where Do You Live? Home Who Do You Live With? spouse Services at Home: None Primary Language: Iranian Smoking Status: Never Smoked ETOH Use: occasional use Functional Ability ADLs Independent: dressing, eating, toileting, bathing. Ambulation: independent IADLs Independent: shopping, housework, finances, food prep, telephone, transportation , medication admin. Review of Systems Review of Systems: as per HPI Exam & Diagnostic Data Vital Signs and I&O Vital Signs Date Time Temp Pulse Resp B/P B/P Pulse O2 O2 Flow FiO2 Mean Ox Delivery Rate 08/19 2241 99.5 110 20 86/48 96 Nasal 3.0L Cannula 08/19 2202 101.8 120 20 82/46 92 Room Air 08/19 2130 118 90/48 08/19 2102 102.5 117 22 95/54 91 Room Air 08/20 2015 101.5 130 24 122/59 92 Room Air 08/20 2007 100.8 08/20 1999 122 98/58 08/19 1929 100.8 113 20 83/54 95 Room Air 08/19 1900 115 99/61 08/19 1830 116 108/62 08/19 1809 99.6 113 20 112/53 95 Nasal 3.0L Cannula 08/19 1807 95 Nasal Cannula 08/19 1745 115 92/58 08/19 1730 113 89/66 08/19 1715 110 88/50 08/19 1700 108 87/49 08 1645 115 97/53 08 1633 130 95/45 96 08 1620 103.0 08/19 1600 127 82/47 91 Room Air 08/19 1549 103.0 123 18 89/44 94 Room Air Room Air 08/19 1323 100.2 130 20 92/57 95 Room Air Intake & Output 08/19 1600 08/19 0800 08/19 0000 08/18 1600 08/18 0800 08/18 0000 Intake Total 0 Output Total 0 Balance 0 Intake, Oral 0 Output, Urine 0 Physical Exam: gen- asleep, does not want to move HEENT- EOMI, MMMnares patent neck supple, no lyphadenopathy resp- clear cardiac- tachy, regular rhythm abd- nondistended, +BS, soft, tender in LLQ with some gaurding, no rebound tenderness ext- warm and dry, no calf tenderness. 2+PT pulse bilaterally Last 24 Hours of Labs: Laboratory Tests 08/19 08/19 08/19 1931 1600 1402 Chemistry Sodium (137 - 145 mmol/L) 140 Potassium (3.5 - 5.1 mmol/L) 4.1 Chloride (98 - 107 mmol/L) 102 Carbon Dioxide (22 - 30 mmol/L) 24 Anion Gap (5 - 16) 14 BUN (9 - 20 mg/dL) 16 Creatinine (0.7 - 1.2 mg/dL) 1.3 H Estimated GFR (>60 ml/min) > 60 BUN/Creatinine Ratio (7 - 25 %) 12.3 Glucose (65 - 99 mg/dL) 129 H Lactic Acid (0.7 - 2.1 mmol/L) 1.4 1.8 Calcium (8.4 - 10.2 mg/dL) 8.1 L Total Bilirubin (0.2 - 1.3 mg/dL) 1.1 AST (17 - 59 U/L) 41 ALT (21 - 72 U/L) 137 H Alkaline Phosphatase (< 127 U/L) 63 Lactate Dehydrogenase (313 - 618 U/L) 569 Total Protein (6.3 - 8.2 g/dL) 6.0 L Albumin (3.5 - 5.0 g/dL) 3.4 L Globulin (1.9 - 4.2 gm/dL) 2.6 Albumin/Globulin Ratio (1.1 - 2.2 %) 1.3 Amylase (30 - 110 U/L) 87 Lipase (23 - 300 U/L) 98 Hematology CBC w Diff MAN DIFF ORDERED WBC (4.8 - 10.8 /CUMM) 19.7 H RBC (4.70 - 6.10 /CUMM) 4.96 Hgb (14.0 - 18.0 G/DL) 15.1 Hct (42 - 52 %) 44.5 MCV (80.0 - 94.0 FL) 89.6 MCH (27.0 - 31.0 PG) 30.4 MCHC (33.0 - 37.0 G/DL) 33.9 RDW (11.5 - 14.5 %) 13.5 Plt Count (130 - 400 /CUMM) 227 MPV (7.4 - 10.4 FL) 8.1 Gran % (42.2 - 75.2 %) 94.5 H Lymphocytes % (20.5 - 51.1 %) 2.7 L Monocytes % (1.7 - 9.3 %) 2.7 Eosinophils % (0 - 5 %) 0 Basophils % (0.0 - 2.0 %) 0.1 Absolute Granulocytes (1.4 - 6.5 /CUMM) 18.6 H Segmented Neutrophils (42.2 - 75.2 %) 78 H Band Neutrophils (0.0 - 5.0 %) 16 H Absolute Lymphocytes (1.2 - 3.4 /CUMM) 0.5 L Lymphocytes (20.5 - 51.1 %) 4 L Monocytes (1.7 - 9.3 %) 1 L Absolute Monocytes (0.10 - 0.60 /CUMM) 0.5 Absolute Eosinophils (0.0 - 0.7 /CUMM) 0 Basophils (0.0 - 2.0 %) 1 Absolute Basophils (0.0 - 0.2 /CUMM) 0 Platelet Estimate (ADEQUATE) ADEQUATE Normocytic RBCs VERIFIED Normochromic RBCs VERIFIED Serology Hepatitis A IgM Ab (NONREACTIVE) Pending Hep Bs Antigen (NONREACTIVE) Pending Hep B Core IgM Ab Conf (NONREACTIVE) Pending Hepatitis C Antibody (NONREACTIVE) Pending HIV 1&2 Ab Western Blot (NONREACTIVE) Cancelled NONREACTIVE Imaging Results: EXAM TYPE: CAT - CT ABD & PELVIS W IV CONTRAST EXAMINATION: CT ABDOMEN AND PELVIS WITH CONTRAST CLINICAL INFORMATION: Left lower quadrant pain, diarrhea. Rule out colitis, diverticulitis. COMPARISON: CT scan of the abdomen and pelvis dated 02/24/2014, 09/10/2013. TECHNIQUE: Multidetector CT volumetric acquisition of the abdomen and pelvis was performed after the administration of 95 and mL of intravenous Optiray 320. The data set was reformatted in the sagittal and coronal planes and reviewed on an independent workstation. DLP: 409.89 mGy-cm. FINDINGS: LOWER CHEST: Minimal bibasilar subsegmental atelectasis. LIVER, GALLBLADDER, BILIARY TREE: Liver normal size and attenuation. There is a 0.5 cm low-attenuation mass in hepatic segment 3 (series 2, image 23) and hepatic segment 7 (series 2, image 21) and a tiny 0.3 cm low-attenuation mass in the right lobe of the liver (series 2, image 38), all unchanged dating back to 02/24/2014, consistent with a benign finding, such as multiple cysts. No new or suspicious focal cystic or solid mass or intra-or extrahepatic ductal dilatation. Hepatic and portal veins patent. Gallbladder partially distended and within normal limits. PANCREAS: Normal. No ductal dilatation, mass, or surrounding stranding. SPLEEN: Normal size and appearance. Splenic vein patent. ADRENAL GLANDS AND KIDNEYS: Adrenal glands normal. Kidneys bilaterally symmetric in size and function. There is a 1.2 cm diameter simple cyst in the mid left kidney (series 2, image 42), similar to the previous exam. No new or suspicious focal renal mass, hydronephrosis, nephrolithiasis or perinephric stranding. URETERS AND BLADDER: Ureters decompressed and within normal limits. Bladder partially distended and within normal limits. PELVIC ORGANS: Unremarkable. GASTROINTESTINAL TRACT: The colon is abnormal in appearance with diffuse mural thickening and mucosal hyperenhancement seen involving the entire colon from the rectum to the ileocecal valve. There is also mild mucosal hyperenhancement of the terminal ileum though no abnormal bowel wall thickening or distention of the terminal ileum is seen. There is mild hyperemia in the colonic mesentery. No significant free fluid collection is seen. No evidence of bowel obstruction or perforation is noted. Small bowel loops decompressed and unremarkable. Appendix in right lower quadrant normal. ABDOMINAL WALL: Small fat-containing umbilical hernia. LYMPHOVASCULAR STRUCTURES: Abdominal aorta normal in caliber with mild atherosclerotic calcifications seen. The SMA and BERE are widely patent. As the is patent and unremarkable. No periaortic collections. There are multiple small subcentimeter sized retroperitoneal lymph nodes seen without pathologic enlargement. BONES: Moderate degenerative disc disease at L4-L5 and L5-S1 with grade 1 retrolistheses of L5 on S1. Findings are similar to the previous exam. IMPRESSION: 1. Diffusely abnormal colon with diffuse mural thickening and mucosal hyperenhancement and mesenteric hyperemia extending from the rectum to the ileocecal valve. Findings are consistent with a diffuse colitis: infectious, inflammatory or possibly antibiotic associated colitis. Pseudomembranous colitis may be possible as well in the correct clinical setting. Close clinical correlation requested. 2. Mild mucosal hyperenhancement of the terminal most ileum is seen without bowel wall thickening, likely reactive. 3. Hepatic and left renal lesions, most consistent with cysts. 4. Small fat-containing umbilical hernia. DICTATED BY: Pili POZO,Sherrie Jerez DATE/TIME DICTATED:08/19/171830 CARPET WEAVER:AUDREY DATE/TIME TRANSCRIBED:08/19/171830 Assessment/Plan Assessment/Plan 42yo M with hypotension, LLQ abdominal pain, diarrhea and vomiting now septic likely due to infectious colitis vs inflamatory. Pt does not have peritoneal signs on exam. CT shows diffuse colitis with no evidence of diverticulitis, appendicitis or free air. Pt has a significant leukocytosis and normal lactic acid. Appreciate GI and ID input. Recommend medical management for now with close monitoring in ICU Resuscitation with IVF and pressors as needed Strict Is and Os Broad spectrum ABX per ID. Cultures pending NPO No need for surgical intervention at this time unless patient fails medical management and clinical status deteriorates. I have discussed this with Dr Clemens and he will see the aptient in the morning. Consult Acknowledgment - Thank you for your consult request. Marissa Clemens MDland Imtiaz 08/20/17 1155: Assessment/Plan Consult Acknowledgment - Thank you for your consult request. Attending MD Review Statement Attending Statement Attending MD Statement: examined this patient, reviewed images Attending Assessment/Plan: as above. infectious colitis with sepsis. currently no indication for surgery. reserve surgical intervention for deterioration and/or development of peritonitis.
[2017-08-20 01:33] LABS: PT 16.5 SEC (9.4-12.5); PTT 23 SEC (25-37)
[2017-08-20 06:22] LABS: ABSOLUTE BASOPHIL COUNT 0 /CUMM (0.0-0.2); ABSOLUTE EOSINOPHIL COUNT 0 /CUMM (0.0-0.7); ABSOLUTE GRANULOCYTE CT 9.5 /CUMM (1.4-6.5); ABSOLUTE LYMPH COUNT 1.2 /CUMM (1.2-3.4); ABSOLUTE MONOCYTE COUNT 0.6 /CUMM (0.10-0.60); BASOPHIL % 0.2 % (0.0-2.0); EOSINOPHIL % 0.1 % (0-5); GRANULOCYTE % 83.7 % (42.2-75.2); HEMATOCRIT 40.6 % (42-52); MEAN CORPUSCULAR HGB 29.7 PG (27.0-31.0); MEAN CORPUSCULAR HGB CONC 33.5 G/DL (33.0-37.0); MEAN CORPUSCULAR VOLUME 88.6 FL (80.0-94.0); MEAN PLATELET VOLUME 7.7 FL (7.4-10.4); PLATELET COUNT 222 /CUMM (130-400); RBC DISTRIBUTION WIDTH 13.5 % (11.5-14.5); RED BLOOD CELL CT 4.58 /CUMM (4.70-6.10); WHITE BLOOD CELL COUNT 11.4 /CUMM (4.8-10.8)
[2017-08-20 08:00] VITALS: BP 104/70
--- NOTE | 2017-08-20 08:46 | PN- CRCU ---
Subjective HPI/Critical Care Issues: Sleeping this morning Abdominal pain seemed to be slightly better MAXIMUM TEMPERATURE was 103 I'll afebrile this morning pulse rate is 97 respiratory 22 on room air saturating 93%. No other complaints. Mild abdominal discomfort. No nausea vomiting. No diarrhea this morning CT scan of abdomen and pelvis reviewed which showed severe pancolitis Chest x-ray mild bibasilar atelectasis Other data reviewed in the computer BUN is 9 and anion gap is 8 lactic acid is unremarkable white count now is 11.4 down from 19 hemoglobin 13.683% granulocytes INR was 1.5. Stool pending previous stool culture positive for Campylobacter Objective Current Medications: Current Medications Sig/Luli Start time Last Medication Dose Route Stop Time Status Admin Acetaminophen 0 .STK-MED ONE 08/19 2134 DC IV Acetaminophen 1,000 MG ONCE ONE 08/19 2129 DC 08/19 N/A 1 UNIT IV 08/19 214 2140 Acetaminophen 1,000 MG Q6P PRN 08/19 213 AC 08/20 IV 0625 Acetaminophen 0 .STK-MED ONE 08/19 1614 DC IV Acetaminophen 1,000 MG ONCE ONE 08/19 1600 DC 08/19 N/A 1 UNIT IV 08/19 1614 1620 Azithromycin 500 MG DAILY 08/20 0900 AC Sodium Chloride 250 ML IV Azithromycin 500 MG ONCE ONE 08/19 1715 DC 08/19 Sodium Chloride 250 ML IV 08/19 1814 1805 Azithromycin 500 MG ONCE ONE 08/19 1615 CAN Sodium Chloride 250 ML IV 08/19 1714 Ceftriaxone Sodium 0 .STK-MED ONE 08/19 1803 DC .ROUTE Ceftriaxone Sodium 1,000 MG ONCE ONE 08/19 1715 DC 08/19 IV 08/19 1716 1805 Dicyclomine HCl 20 MG 4 TIMES/DAY 08/20 0155 AC 08/20 PO 0542 Dicyclomine HCl 20 MG ONCE ONE 08/19 1945 DC 08/19 IM 08/19 194 2007 Lactated Ringer's 1,000 ML .Q5H 08/19 2100 AC 08/20 IV 0627 Metoclopramide HCl 0 .STK-MED ONE 08/19 2000 DC .ROUTE Metoclopramide HCl 10 MG ONCE ONE 08/19 1915 DC /08 IV 08/19 1916 2006 Metronidazole 500 MG IQ8 08/20 0000 AC 08/20 N/A 1 UNIT IV 0816 Metronidazole 500 MG ONCE ONE 08/19 1715 DC 08/19 N/A 1 UNIT IV 08/19 1814 1805 Promethazine HCl 0 .STK-MED ONE 08/19 1712 DC .ROUTE Promethazine HCl 12.5 MG ONCE ONE 08/19 1615 DC 05/08 IV 08/19 1616 1700 Sodium Chloride 1,000 ML BOLUS ONE 08/19 1945 DC 05/08 IV 08/19 2044 2005 Sodium Chloride 1,000 ML BOLUS ONE 08/19 1600 DC 05/08 IV 08/19 1659 1606 Sodium Chloride 1,000 ML BOLUS ONE 08/19 1600 DC 05/08 IV 08/19 1659 1606 Sodium Chloride 1,000 ML BOLUS ONE 08/19 1330 DC / IV 08/19 1429 1331 Trimethobenzamide HCl 200 MG 4 TIMES/DAY PRN 08/20 1999 AC IM Vancomycin HCl 500 MG Q6 08/19 2359 AC 08/20 PO 0647 Vancomycin HCl 500 MG ONCE ONE 08/19 1715 DC / PO 08/19 1716 1805 Vancomycin HCl 1,000 MG ONCE ONE 08/19 1615 CAN Sodium Chloride 250 ML IV 08/19 1714 Vital Signs & I&O Last 24 Hrs of Vitals and I&O: Vital Signs Date Time Temp Pulse Resp B/P B/P Pulse O2 O2 Flow FiO2 Mean Ox Delivery Rate 08/20 0749 98.4 08/20 0400 97 Room Air 08/20 0000 94 Room Air 08/19 2300 99.2 08/19 2300 99.2 97 22 90/54 93 Room Air 08/19 2241 99.5 110 20 86/48 96 Nasal 3.0L Cannula 08/193 101.8 120 20 82/46 92 Room Air 08/19 2130 118 90/48 08/19 210 102.5 117 22 95/54 91 Room Air 08/20 2015 101.5 130 24 122/59 92 Room Air 08/20 2007 100.8 08/20 1999 122 98/58 08/19 1929 100.8 113 20 83/54 95 Room Air 08/19 1900 115 99/61 08/19 1830 116 108/62 08/19 1809 99.6 113 20 112/53 95 Nasal 3.0L Cannula 08/19 1807 95 Nasal Cannula 08/19 1745 115 92/58 08/19 1730 113 89/66 08/19 1715 110 88/50 08/19 1700 108 87/49 08 1645 115 97/53 08/19 1633 130 95/45 96 08/19 1620 103.0 08/19 1600 127 82/47 91 Room Air 08/19 1549 103.0 123 18 89/44 94 Room Air Room Air 08/19 1323 100.2 130 20 92/57 95 Room Air Intake & Output 08/20 1600 08/20 0800 08/20 0000 Intake Total 5329 4300 Output Total 5 0 Balance 5324 4300 Intake, IV 5279 4300 Intake, Oral 50 0 Number 200 0 Bowel Movements Output, Stool 3 Output, Urine 2 0 Patient 190 lb Weight Weight Bed scale Measurement Method Laboratory Tests 08/20 08/20 08/19 0610 0105 1931 Chemistry Sodium (137 - 145 mmol/L) 139 Potassium (3.5 - 5.1 mmol/L) 4.1 Chloride (98 - 107 mmol/L) 108 H Carbon Dioxide (22 - 30 mmol/L) 22 Anion Gap (5 - 16) 8 BUN (9 - 20 mg/dL) 9 Creatinine (0.7 - 1.2 mg/dL) 0.9 Estimated GFR (>60 ml/min) > 60 Glucose (65 - 99 mg/dL) 104 H Lactic Acid (0.7 - 2.1 mmol/L) 0.6 L Calcium (8.4 - 10.2 mg/dL) 8.4 Phosphorus (2.5 - 4.5 mg/dL) 2.9 Magnesium (1.6 - 2.3 mg/dL) 1.8 Total Bilirubin (0.2 - 1.3 mg/dL) 0.8 Direct Bilirubin (< 0.4 mg/dL) 0.3 AST (17 - 59 U/L) 33 ALT (21 - 72 U/L) 107 H Alkaline Phosphatase (< 127 U/L) 55 Total Protein (6.3 - 8.2 g/dL) 5.7 L Albumin (3.5 - 5.0 g/dL) 3.1 L Coagulation PT (9.4 - 12.5 SEC) 16.5 H INR (0.90 - 1.17) 1.51 H APTT (25 - 37 SEC) 23 L Hematology CBC w Diff MAN DIFF ORDERED WBC (4.8 - 10.8 /CUMM) 11.4 H RBC (4.70 - 6.10 /CUMM) 4.58 L Hgb (14.0 - 18.0 G/DL) 13.6 L Hct (42 - 52 %) 40.6 L MCV (80.0 - 94.0 FL) 88.6 MCH (27.0 - 31.0 PG) 29.7 MCHC (33.0 - 37.0 G/DL) 33.5 RDW (11.5 - 14.5 %) 13.5 Plt Count (130 - 400 /CUMM) 222 MPV (7.4 - 10.4 FL) 7.7 Gran % (42.2 - 75.2 %) 83.7 H Lymphocytes % (20.5 - 51.1 %) 11.0 L Monocytes % (1.7 - 9.3 %) 5.0 Eosinophils % (0 - 5 %) 0.1 Basophils % (0.0 - 2.0 %) 0.2 Absolute Granulocytes (1.4 - 6.5 /CUMM) 9.5 H Segmented Neutrophils (42.2 - 75.2 %) 79 H Absolute Lymphocytes (1.2 - 3.4 /CUMM) 1.2 Lymphocytes (20.5 - 51.1 %) 14 L Monocytes (1.7 - 9.3 %) 7 Absolute Monocytes (0.10 - 0.60 /CUMM) 0.6 Absolute Eosinophils (0.0 - 0.7 /CUMM) 0 Absolute Basophils (0.0 - 0.2 /CUMM) 0 Platelet Estimate (ADEQUATE) ADEQUATE Normocytic RBCs VERIFIED Normochromic RBCs VERIFIED Other Body Source Fld Total RBCs Counted (%) 100 Serology HIV 1&2 Ab Western Blot Cancelled 08/19 08/19 1600 1402 Chemistry Sodium (137 - 145 mmol/L) 140 Potassium (3.5 - 5.1 mmol/L) 4.1 Chloride (98 - 107 mmol/L) 102 Carbon Dioxide (22 - 30 mmol/L) 24 Anion Gap (5 - 16) 14 BUN (9 - 20 mg/dL) 16 Creatinine (0.7 - 1.2 mg/dL) 1.3 H Estimated GFR (>60 ml/min) > 60 BUN/Creatinine Ratio (7 - 25 %) 12.3 Glucose (65 - 99 mg/dL) 129 H Lactic Acid (0.7 - 2.1 mmol/L) 1.4 1.8 Calcium (8.4 - 10.2 mg/dL) 8.1 L Total Bilirubin (0.2 - 1.3 mg/dL) 1.1 AST (17 - 59 U/L) 41 ALT (21 - 72 U/L) 137 H Alkaline Phosphatase (< 127 U/L) 63 Lactate Dehydrogenase (313 - 618 U/L) 569 Total Protein (6.3 - 8.2 g/dL) 6.0 L Albumin (3.5 - 5.0 g/dL) 3.4 L Globulin (1.9 - 4.2 gm/dL) 2.6 Albumin/Globulin Ratio (1.1 - 2.2 %) 1.3 Amylase (30 - 110 U/L) 87 Lipase (23 - 300 U/L) 98 Hematology CBC w Diff MAN DIFF ORDERED WBC (4.8 - 10.8 /CUMM) 19.7 H RBC (4.70 - 6.10 /CUMM) 4.96 Hgb (14.0 - 18.0 G/DL) 15.1 Hct (42 - 52 %) 44.5 MCV (80.0 - 94.0 FL) 89.6 MCH (27.0 - 31.0 PG) 30.4 MCHC (33.0 - 37.0 G/DL) 33.9 RDW (11.5 - 14.5 %) 13.5 Plt Count (130 - 400 /CUMM) 227 MPV (7.4 - 10.4 FL) 8.1 Gran % (42.2 - 75.2 %) 94.5 H Lymphocytes % (20.5 - 51.1 %) 2.7 L Monocytes % (1.7 - 9.3 %) 2.7 Eosinophils % (0 - 5 %) 0 Basophils % (0.0 - 2.0 %) 0.1 Absolute Granulocytes (1.4 - 6.5 /CUMM) 18.6 H Segmented Neutrophils (42.2 - 75.2 %) 78 H Band Neutrophils (0.0 - 5.0 %) 16 H Absolute Lymphocytes (1.2 - 3.4 /CUMM) 0.5 L Lymphocytes (20.5 - 51.1 %) 4 L Monocytes (1.7 - 9.3 %) 1 L Absolute Monocytes (0.10 - 0.60 /CUMM) 0.5 Absolute Eosinophils (0.0 - 0.7 /CUMM) 0 Basophils (0.0 - 2.0 %) 1 Absolute Basophils (0.0 - 0.2 /CUMM) 0 Platelet Estimate (ADEQUATE) ADEQUATE Normocytic RBCs VERIFIED Normochromic RBCs VERIFIED Serology Hepatitis A IgM Ab (NONREACTIVE) Pending Hep Bs Antigen (NONREACTIVE) Pending Hep B Core IgM Ab Conf (NONREACTIVE) Pending Hepatitis C Antibody (NONREACTIVE) Pending HIV 1&2 Ab Western Blot (NONREACTIVE) NONREACTIVE Microbiology Date/Time Procedure - Status Source Growth 08/21 639 Surveillance Culture - RECD GI 08/20 06 Stool Culture - CAN STOOL Cancelled: DUPLICATE ORDER 08/19 2300 Surveillance Culture - RECD UPPER RESP 08/19 1613 Clostridium difficile Toxin A & B - RES STOOL 08/19 1613 Stool Culture - RES STOOL 08/19 1600 Blood Culture - RECD BLOOD 08/19 1402 Blood Culture - RECD BLOOD 08/19 1340 Cryptosporidium Antigen - COLB GI 08/19 1340 Giardia Antigen (DANIEL) - COLB GI Impression/Plan Impression/Plan Impression/Plan: He is sleeping easily arousable Skin reveals no rash. HEENT exam is negative. Neck is supple with no adenopathy. Lungs are clear. Heart regular rhythm with no murmur. Abdomen is soft, mild tenderness on palpation of the left lower quadrant, with no guarding or rebound, positive bowel sounds. Back no CVA tenderness. Extremities no cyanosis, clubbing or edema; no joint inflammation. Neuro is without focality. IMPRESSION: 1. Diffusely abnormal colon with diffuse mural thickening and mucosal hyperenhancement and mesenteric hyperemia extending from the rectum to the ileocecal valve. Findings are consistent with a diffuse colitis: infectious, inflammatory or possibly antibiotic associated colitis. Pseudomembranous colitis may be possible as well in the correct clinical setting. Close clinical correlation requested. 2. Mild mucosal hyperenhancement of the terminal most ileum is seen without bowel wall thickening, likely reactive. 3. Hepatic and left renal lesions, most consistent with cysts. 4. Small fat-containing umbilical hernia. DICTATED BY: Pili POZO,Sherrie Jerez DATE/TIME DICTATED:05/08/18 / 1831 IMPRESSION This is a gentleman with the history of Campylobacter O antritis in the recent past few days with one week of diarrhea. Patient has been treated with antibiotics prior with Cipro and Flagyl. He came into the emergency room in significant tachycardia severe abdominal pain and leukocytosis and bandemia with significant pancolitis with sepsis. Issues include Pancolitis, differential diagnosis for this includes C. difficile versus worsening Campylobacter infection versus other super infections including salmonella, Escherichia coli etc. Significant lymphocytopenia upon admission Hypotension, tachycardia etc. consistent with significant sepsis Mildly altered LFTs due to sepsis, mild coagulopathy due to sepsis Now seems to be adequately fluid resuscitated and doing well RECOMMENDATION Continue antibiotics as noted by ID Check C. difficile Change IV fluids to D5 Ringer's lactate at 100 mL per hour If he continues to be clinically stable, can resume clear liquid diet check with surgery first Discontinue dicyclomine for now if he stable We will follow closely Rapidly ill total time spent 38 minutes
--- NOTE | 2017-08-20 11:41 | PN- Infect Dx ---
Subjective Subjective: T-max 103. His blood pressure has improved as has his tachycardia. He feels improved though still reports liquidy, green stools and mild abdominal cramps. He has had no further nausea or vomiting but still notes a mild headache. Objective Last 24 Hrs of Vital Signs/I&O Vital Signs Date Time Temp Pulse Resp B/P B/P Pulse O2 O2 Flow FiO2 Mean Ox Delivery Rate 08/21 799 98.4 113 18 104/70 97 Room Air 08/20 0749 98.4 08/20 0400 97 Room Air 08/20 0000 94 Room Air 08/19 2300 99.2 / 2300 99.2 97 22 90/54 93 Room Air 08/19 2241 99.5 110 20 86/48 96 Nasal 3.0L Cannula 08/19 2203 101.8 120 20 82/46 92 Room Air 08/19 2130 118 90/48 /08 2102 102.5 117 22 95/54 91 Room Air 08/20 2015 101.5 130 24 122/59 92 Room Air 08/20 2007 100.8 / 2000 122 98/58 05/08 1929 100.8 113 20 83/54 95 Room Air 08/19 1900 115 99/61 05/08 1830 116 108/62 05/08 1809 99.6 113 20 112/53 95 Nasal 3.0L Cannula 08/19 1807 95 Nasal Cannula / 1745 115 92/58 05/08 1730 113 89/66 05/08 1715 110 88/50 05/08 1700 108 87/49 05/08 1645 115 97/53 05/08 1633 130 95/45 96 05/08 1620 103.0 /08 1600 127 82/47 91 Room Air 08 1549 103.0 123 18 89/44 94 Room Air Room Air 08/19 1323 100.2 130 20 92/57 95 Room Air Intake & Output 08/20 1600 08/20 0800 05/ 0000 Intake Total 5329 4300 Output Total 5 0 Balance 5324 4300 Intake, IV 5279 4300 Intake, Oral 50 0 Number 200 0 Bowel Movements Output, Stool 3 Output, Urine 2 0 Patient 180 lb 190 lb Weight Weight Bed scale Measurement Method Physical Exam Other Physical Findings: He appears improved, comfortable, in no acute distress Lungs are clear Heart regular rhythm without murmur Abdomen is soft, nontender with positive bowel sounds Back no CVA tenderness Extremities no cyanosis, clubbing or edema Results Last 24 Hours of Lab Results: Laboratory Tests 08/20 08/20 08/19 0610 0105 1931 Chemistry Sodium (137 - 145 mmol/L) 139 Potassium (3.5 - 5.1 mmol/L) 4.1 Chloride (98 - 107 mmol/L) 108 H Carbon Dioxide (22 - 30 mmol/L) 22 Anion Gap (5 - 16) 8 BUN (9 - 20 mg/dL) 9 Creatinine (0.7 - 1.2 mg/dL) 0.9 Estimated GFR (>60 ml/min) > 60 Glucose (65 - 99 mg/dL) 104 H Lactic Acid (0.7 - 2.1 mmol/L) 0.6 L Calcium (8.4 - 10.2 mg/dL) 8.4 Phosphorus (2.5 - 4.5 mg/dL) 2.9 Magnesium (1.6 - 2.3 mg/dL) 1.8 Total Bilirubin (0.2 - 1.3 mg/dL) 0.8 Direct Bilirubin (< 0.4 mg/dL) 0.3 AST (17 - 59 U/L) 33 ALT (21 - 72 U/L) 107 H Alkaline Phosphatase (< 127 U/L) 55 Total Protein (6.3 - 8.2 g/dL) 5.7 L Albumin (3.5 - 5.0 g/dL) 3.1 L Coagulation PT (9.4 - 12.5 SEC) 16.5 H INR (0.90 - 1.17) 1.51 H APTT (25 - 37 SEC) 23 L Hematology CBC w Diff MAN DIFF ORDERED WBC (4.8 - 10.8 /CUMM) 11.4 H RBC (4.70 - 6.10 /CUMM) 4.58 L Hgb (14.0 - 18.0 G/DL) 13.6 L Hct (42 - 52 %) 40.6 L MCV (80.0 - 94.0 FL) 88.6 MCH (27.0 - 31.0 PG) 29.7 MCHC (33.0 - 37.0 G/DL) 33.5 RDW (11.5 - 14.5 %) 13.5 Plt Count (130 - 400 /CUMM) 222 MPV (7.4 - 10.4 FL) 7.7 Gran % (42.2 - 75.2 %) 83.7 H Lymphocytes % (20.5 - 51.1 %) 11.0 L Monocytes % (1.7 - 9.3 %) 5.0 Eosinophils % (0 - 5 %) 0.1 Basophils % (0.0 - 2.0 %) 0.2 Absolute Granulocytes (1.4 - 6.5 /CUMM) 9.5 H Segmented Neutrophils (42.2 - 75.2 %) 79 H Absolute Lymphocytes (1.2 - 3.4 /CUMM) 1.2 Lymphocytes (20.5 - 51.1 %) 14 L Monocytes (1.7 - 9.3 %) 7 Absolute Monocytes (0.10 - 0.60 /CUMM) 0.6 Absolute Eosinophils (0.0 - 0.7 /CUMM) 0 Absolute Basophils (0.0 - 0.2 /CUMM) 0 Platelet Estimate (ADEQUATE) ADEQUATE Normocytic RBCs VERIFIED Normochromic RBCs VERIFIED Other Body Source Fld Total RBCs Counted (%) 100 Serology HIV 1&2 Ab Western Blot Cancelled 08/19 08/19 1600 1402 Chemistry Sodium (137 - 145 mmol/L) 140 Potassium (3.5 - 5.1 mmol/L) 4.1 Chloride (98 - 107 mmol/L) 102 Carbon Dioxide (22 - 30 mmol/L) 24 Anion Gap (5 - 16) 14 BUN (9 - 20 mg/dL) 16 Creatinine (0.7 - 1.2 mg/dL) 1.3 H Estimated GFR (>60 ml/min) > 60 BUN/Creatinine Ratio (7 - 25 %) 12.3 Glucose (65 - 99 mg/dL) 129 H Lactic Acid (0.7 - 2.1 mmol/L) 1.4 1.8 Calcium (8.4 - 10.2 mg/dL) 8.1 L Total Bilirubin (0.2 - 1.3 mg/dL) 1.1 AST (17 - 59 U/L) 41 ALT (21 - 72 U/L) 137 H Alkaline Phosphatase (< 127 U/L) 63 Lactate Dehydrogenase (313 - 618 U/L) 569 Total Protein (6.3 - 8.2 g/dL) 6.0 L Albumin (3.5 - 5.0 g/dL) 3.4 L Globulin (1.9 - 4.2 gm/dL) 2.6 Albumin/Globulin Ratio (1.1 - 2.2 %) 1.3 Amylase (30 - 110 U/L) 87 Lipase (23 - 300 U/L) 98 Hematology CBC w Diff MAN DIFF ORDERED WBC (4.8 - 10.8 /CUMM) 19.7 H RBC (4.70 - 6.10 /CUMM) 4.96 Hgb (14.0 - 18.0 G/DL) 15.1 Hct (42 - 52 %) 44.5 MCV (80.0 - 94.0 FL) 89.6 MCH (27.0 - 31.0 PG) 30.4 MCHC (33.0 - 37.0 G/DL) 33.9 RDW (11.5 - 14.5 %) 13.5 Plt Count (130 - 400 /CUMM) 227 MPV (7.4 - 10.4 FL) 8.1 Gran % (42.2 - 75.2 %) 94.5 H Lymphocytes % (20.5 - 51.1 %) 2.7 L Monocytes % (1.7 - 9.3 %) 2.7 Eosinophils % (0 - 5 %) 0 Basophils % (0.0 - 2.0 %) 0.1 Absolute Granulocytes (1.4 - 6.5 /CUMM) 18.6 H Segmented Neutrophils (42.2 - 75.2 %) 78 H Band Neutrophils (0.0 - 5.0 %) 16 H Absolute Lymphocytes (1.2 - 3.4 /CUMM) 0.5 L Lymphocytes (20.5 - 51.1 %) 4 L Monocytes (1.7 - 9.3 %) 1 L Absolute Monocytes (0.10 - 0.60 /CUMM) 0.5 Absolute Eosinophils (0.0 - 0.7 /CUMM) 0 Basophils (0.0 - 2.0 %) 1 Absolute Basophils (0.0 - 0.2 /CUMM) 0 Platelet Estimate (ADEQUATE) ADEQUATE Normocytic RBCs VERIFIED Normochromic RBCs VERIFIED Serology Hepatitis A IgM Ab (NONREACTIVE) Pending Hep Bs Antigen (NONREACTIVE) Pending Hep B Core IgM Ab Conf (NONREACTIVE) Pending Hepatitis C Antibody (NONREACTIVE) Pending HIV 1&2 Ab Western Blot (NONREACTIVE) NONREACTIVE Last 24 Hours of Hany Results: Blood cultures 2 August 19 negative Stool culture August 19 mixed alvin, with Shiga toxin negative Stool C. difficile August 19 pending Recent Imaging Studies: CT of the abdomen and pelvis August 19 reveals a diffusely abnormal colon with diffuse mural thickening and mucosal hyperenhancement and mesenteric hyperemia extending from the rectum to the ileocecal valve, consistent with a diffuse colitis Chest x-ray August 19 mild bibasilar subsegmental atelectasis Assessment/Plan ID Impression: Improving, with temperatures and white blood cell count decreased today, on empiric treatment for fulminant C. difficile, with high-dose oral Vancomycin and IV Flagyl, and Azithromycin for the possibility of a persistent Campylobacter enteritis, though this seems less likely in this immunocompetent host. He received 1 dose of Ceftriaxone yesterday but this should not need to be continued based on the preliminary cultures and CT scan results. Of note a stool for O&P was apparently sent as an outpatient and was negative. Suggestion: 1. Follow-up stool for C. difficile and culture 2. Special contact precautions pending above 3. Continue p.o. Vancomycin, IV Flagyl and IV Azithromycin pending above
--- NOTE | 2017-08-20 11:42 | Cons- CRCU ---
General Information and HPI Consulting Request Date of Consult: 08/20/17 Requested By: Primary Team Reason for Consult: Septic shock 2/2 to GI infection History of Present Illness: 42-year-old gentleman with past medical history of hyperlipidemia came to [facility] with complaints of nausea, vomiting, diarrhea for the past 3 weeks According to the patient and his patient was in usual state of health until 3 weeks ago. Patient has 2 dogs one of them had diarrhea and found to have Giardia and both were treated. Since the patient had diarrhea about 2-3 loose bowel movements every day associated with abdominal pain on and off. Patient came to [facility] on 10 August and was sent home with Samreen and Sanjuanita. Patient was seen by his primary care physician Dr. Coker's last Friday who suggested to discontinue ciprofloxacin since his lab works came negative and patient condition improved. Since last Friday patient developed nausea, vomiting [more than 5 episodes], loose stools greenish in color not associated with 3-4 episodes every day. Patient also felt weak since he is not able to eat anything. He endorses fever with chills last Friday and today before coming to [facility]. Patient also complains of 10 x 10 headache for the past 2-3 days. Patient endorses eating seafood a month ago following which she developed these symptoms. He denied rash, joint pain, shortness of breath, chest pain, travel outside the [place]/headache, fall, loss of consciousness. Allergies/Medications Allergies: Coded Allergies: meperidine (From DEMEROL) (Intermediate, HIVES 08/10/17) Home Med List: Atorvastatin Calcium 40 MG TABLET 1 TAB PO DAILY chol (Reported) Cholecalciferol (Vitamin D3) 1,000 UNIT TABLET 1 TAB PO DAILY VITAMIN SUPPORT (Reported) Cyanocobalamin (Vitamin B-12) 1,000 MCG TABLET 1 TAB PO DAILY VITAMIN SUPPORT (Reported) Review of Systems Review of Systems Constitutional: Reports: see HPI. Past History Travel History Traveled to [place] past 21 day No Medical History Blood Transfusion Hx: No Neurological: NONE EENT: NONE Cardiovascular: HIGH CHOLESTEROL Respiratory: NONE Gastrointestinal: NONE Hepatic: NONE Renal: NONE Musculoskeletal: NONE Psychiatric: NONE Endocrine: NONE Blood Disorders: NONE Cancer(s): NONE DRAINLAYER/Reproductive: NONE Surgical History Surgical History: 1 Family History Relations & Conditions If Any: Relation not specified for: *No pertinent family history Psychosocial History Where Do You Live? Home Who Do You Live With? spouse Services at Home: None Primary Language: Upper Sorbian Smoking Status: Former Smoker ETOH Use: occasional use Functional Ability ADLs Independent: dressing, eating, toileting, bathing. Ambulation: independent IADLs Independent: shopping, housework, finances, food prep, telephone, transportation , medication admin. Exam & Diagnostic Data Last 24 Hrs of Vital Signs/I&O Vital Signs Date Time Temp Pulse Resp B/P B/P Pulse O2 O2 Flow FiO2 Mean Ox Delivery Rate 08/20 08 98.4 113 18 104/70 97 Room Air 08/20 0749 98.4 08/20 0400 97 Room Air 08/20 0000 94 Room Air 08/19 2300 99.2 08/19 2300 99.2 97 22 90/54 93 Room Air 08/19 2241 99.5 110 20 86/48 96 Nasal 3.0L Cannula 08/19 2203 101.8 120 20 82/46 92 Room Air 08/19 2130 118 90/48 08 2102 102.5 117 22 95/54 91 Room Air 08/20 2015 101.5 130 24 122/59 92 Room Air 08/19 2008 100.8 /08 2000 122 98/58 /08 1929 100.8 113 20 83/54 95 Room Air 08/19 1900 115 99/61 /08 1830 116 108/62 /08 1809 99.6 113 20 112/53 95 Nasal 3.0L Cannula 08/19 1807 95 Nasal Cannula 08/19 1745 115 92/58 05/08 1730 113 89/66 05/08 1715 110 88/50 /08 1700 108 87/49 /08 1645 115 97/53 /08 1633 130 95/45 96 05/08 1620 103.0 /08 1600 127 82/47 91 Room Air 08/19 1549 103.0 123 18 89/44 94 Room Air Room Air 08/19 1323 100.2 130 20 92/57 95 Room Air Intake & Output 08/20 1600 08/20 0800 05 0000 Intake Total 5329 4300 Output Total 5 0 Balance 5324 4300 Intake, IV 5279 4300 Intake, Oral 50 0 Number 200 0 Bowel Movements Output, Stool 3 Output, Urine 2 0 Patient 180 lb 190 lb Weight Weight Bed scale Measurement Method Physical Exam General Appearance: well developed/nourished, no apparent distress, alert, awake Respiratory: lungs clear Cardiovascular: mild tachycardia Gastrointestinal: soft, non-tender Extremities: 1+ radial pulses, 1+ LE edema Last 48 Hrs of Labs/Hany: Laboratory Tests 08/20/17 0610: Anion Gap 8, Estimated GFR > 60, Glucose 104 H, Calcium 8.4, Phosphorus 2.9, Magnesium 1.8, Total Bilirubin 0.8, Direct Bilirubin 0.3, AST 33, ALT 107 H, Alkaline Phosphatase 55, Total Protein 5.7 L, Albumin 3.1 L, CBC w Diff MAN DIFF ORDERED, RBC 4.58 L, MCV 88.6, MCH 29.7, MCHC 33.5, RDW 13.5, MPV 7.7, Gran % 83.7 H, Lymphocytes % 11.0 L, Monocytes % 5.0, Eosinophils % 0.1, Basophils % 0.2, Absolute Granulocytes 9.5 H, Segmented Neutrophils 79 H, Absolute Lymphocytes 1.2, Lymphocytes 14 L, Monocytes 7, Absolute Monocytes 0.6 , Absolute Eosinophils 0, Absolute Basophils 0, Platelet Estimate ADEQUATE, Normocytic RBCs VERIFIED, Normochromic RBCs VERIFIED, Fld Total RBCs Counted 100 08/20/17 0105: Lactic Acid 0.6 L, PT 16.5 H, INR 1.51 H, APTT 23 L 08/19/17 1931: HIV 1&2 Ab Western Blot Cancelled 08/19/17 1600: Lactic Acid 1.4 08/19/17 1402: Anion Gap 14, Estimated GFR > 60, BUN/Creatinine Ratio 12.3, Glucose 129 H, Lactic Acid 1.8, Calcium 8.1 L, Total Bilirubin 1.1, AST 41, ALT 137 H, Alkaline Phosphatase 63, Lactate Dehydrogenase 569, Total Protein 6.0 L, Albumin 3.4 L, Globulin 2.6, Albumin/Globulin Ratio 1.3, Amylase 87, Lipase 98, CBC w Diff MAN DIFF ORDERED, RBC 4.96, MCV 89.6, MCH 30.4, MCHC 33.9, RDW 13.5, MPV 8.1, Gran % 94.5 H, Lymphocytes % 2.7 L, Monocytes % 2.7, Eosinophils % 0, Basophils % 0.1, Absolute Granulocytes 18.6 H, Segmented Neutrophils 78 H, Band Neutrophils 16 H, Absolute Lymphocytes 0.5 L, Lymphocytes 4 L, Monocytes 1 L, Absolute Monocytes 0.5, Absolute Eosinophils 0, Basophils 1, Absolute Basophils 0, Platelet Estimate ADEQUATE, Normocytic RBCs VERIFIED, Normochromic RBCs VERIFIED, Hepatitis A IgM Ab Pending, Hep Bs Antigen Pending, Hep B Core IgM Ab Conf Pending, Hepatitis C Antibody Pending, HIV 1&2 Ab Western Blot NONREACTIVE Assessment/Plan CRCU Impression/Plan: 42-year-old gentleman with past medical history of hyperlipidemia came to [facility] with complaints of nausea, vomiting, diarrhea for the past 3 weeks previously found to have positive Campylobacter stool culture presenting for sepsis and presumed gastroenterology infection. A: Respiratory: No issues Infection: #Sepsis 2/2 to presumed GI infectious origin The patient has had nausea vomiting and diarrhea for the past weeks. He describes the diarrhea as cholorphyll green. States that one of his dogs is positive for giardia. Was previously seen in the [facility] on August 10 and was sent home with ciprofloxacin and Flagyl. Ciprofloxacin was discontinued per his PCP. CT abd revealed: Diffuse colitis, mucosal hyperenhancement at the terminal ileum likely reactive, hepatic and left renal lesions consistent with cysts. Stool cultures currently mixed alvin, with Shiga toxin negative. Continues to have mild leukocytosis. -If clinically stable, can resume clear liquid diet but must confirm surgery first -Follow-up C. difficile, stool culture, ova and parasites. -Continue vancomycin, metronidazole, azithromycin. Pt received ceftriaxone x1 for possible e.coli. -cont bentyle until dirrhea improves -cont IVF, strict I/O, Cardiac: #hypotension BP ranges from 82-104'/46-70. Most likely 2/2 to GI fluid loss and sepsis. Lactic acid negative. -cont IVF fluid - cont monitoring vitals Hematology oncology: #Lymphopenia Initially presented with 2.7 lymphocytes. Unclear causes. HIV negative -cont to monitor Metabolic: #Renal cysts Renal cysts fround on CT abd. Currently asymptomatic. -Outpatient follow-up #NEGRA - resolved The patient presented with a creatinine of 1.3 which is now improved after fluids. -Continue to monitor Alimentary #Elevated ALT in the setting of hepatic cysts CT revealed hepatic cysts. Patient presenting with initial ALT of 137. Repeat ALT is 107. HIV test negative. -Follow-up hepatitis panel Neuro House keeping: FULL CODE NPO Problem List: 1. Sepsis 2. Infectious colitis 3. Nausea, vomiting, and diarrhea 4. Abdominal pain 5. Elevated ALT measurement 6. Renal cyst 7. Liver cyst Consult Acknowledgment - Thank you for your consult request.
[2017-08-20 16:36] VITALS: BP 90/50
[2017-08-20 18:21] VITALS: BP 110/60
[2017-08-20 22:10] VITALS: BP 90/68
[2017-08-21 06:37] VITALS: BP 96/64
[2017-08-21 07:46] LABS: ABSOLUTE BASOPHIL COUNT 0 /CUMM (0.0-0.2); ABSOLUTE EOSINOPHIL COUNT 0 /CUMM (0.0-0.7); ABSOLUTE GRANULOCYTE CT 5.4 /CUMM (1.4-6.5); ABSOLUTE LYMPH COUNT 1.4 /CUMM (1.2-3.4); ABSOLUTE MONOCYTE COUNT 0.6 /CUMM (0.10-0.60); BASOPHIL % 0.3 % (0.0-2.0); EOSINOPHIL % 0.4 % (0-5); GRANULOCYTE % 72.5 % (42.2-75.2); HEMATOCRIT 37.1 % (42-52); MEAN CORPUSCULAR HGB 29.8 PG (27.0-31.0); MEAN CORPUSCULAR VOLUME 90.3 FL (80.0-94.0); MEAN PLATELET VOLUME 8.5 FL (7.4-10.4); PLATELET COUNT 174 /CUMM (130-400); RED BLOOD CELL CT 4.11 /CUMM (4.70-6.10); WHITE BLOOD CELL COUNT 7.5 /CUMM (4.8-10.8)
--- NOTE | 2017-08-21 08:37 | PN- Housestaff ---
Shahana POZO,Linda 08/21/17 0837: Subjective Follow-up For: Nausea vomiting diarrhea Complaints: diarrhea Subjective: Patient seen and examined at bedside. No overnight events. Complaints of diarrhea with no blood. Denies nausea, vomiting, weakness, dizziness. Review of Systems Constitutional: Reports: no symptoms, see HPI. Objective Last 24 Hrs of Vital Signs/I&O Vital Signs Date Time Temp Pulse Resp B/P B/P Pulse O2 O2 Flow FiO2 Mean Ox Delivery Rate 08/21 0537 98.2 82 18 96/64 93 08/20 2210 91.0 91 20 90/68 93 Room Air 08/20 1821 98.7 88 20 110/60 94 Room Air 08/20 1636 98.5 82 20 90/50 94 Room Air Intake & Output 08/21 1600 08/21 0800 08/21 0000 Intake Total 900 310 Output Total 600 400 Balance 300 -90 Intake, IV 900 310 Intake, Oral 0 Number 0 Bowel Movements Output, Urine 600 400 Physical Exam General Appearance: Alert, Oriented X3, Cooperative, No Acute Distress Cardiovascular: Regular Rate, Normal S1, Normal S2, No Murmurs Lungs: Clear to Auscultation, Normal Air Movement Abdomen: Soft, No Tenderness Neurological: Strength at 5/5 X4 Ext, Normal Tone, Sensation Intact Extremities: No Edema, Normal Pulses Current Medications: Current Medications Sig/Luli Start time Last Medication Dose Route Stop Time Status Admin Acetaminophen 1,000 MG Q6P PRN 08/19 2130 AC 08/20 IV 0625 Azithromycin 500 MG DAILY 08/20 09 08/21 Sodium Chloride 250 ML IV 0943 Dextrose/Lactated 1,000 ML Q10H 08/20 1145 AC 08/21 Ringer's IV 0432 Dicyclomine HCl 20 MG 4 TIMES/DAY 08/20 0155 AC 08/20 PO 2104 Lactated Ringer's 1,000 ML .Q5H 08/19 2100 DC 08/20 IV 1128 Metronidazole 500 MG IQ8 08/20 0000 AC 08/21 N/A 1 UNIT IV 0756 Ondansetron HCl 4 MG ONCE ONE 08/20 2300 DC 08/20 IV 08/20 2301 2258 Trimethobenzamide HCl 200 MG 4 TIMES/DAY PRN 08/19 2000 AC IM Vancomycin HCl 500 MG Q6 08/19 2359 AC 08/21 PO 0535 Last 24 Hrs of Lab/Hany Results Last 24 Hrs of Labs/Mics: Laboratory Tests 08/21/17 0610: Anion Gap 10, Estimated GFR > 60, Glucose 88, Calcium 8.2 L, Phosphorus 2.8, Magnesium 1.9, Total Bilirubin 0.6, AST 27, ALT 80 H, Albumin 2.8 L, CBC w Diff NO MAN DIFF REQ, RBC 4.11 L, MCV 90.3, MCH 29.8, MCHC 33.0, RDW 14.0, MPV 8.5, Gran % 72.5, Lymphocytes % 18.5 L, Monocytes % 8.3, Eosinophils % 0.4, Basophils % 0.3, Absolute Granulocytes 5.4, Absolute Lymphocytes 1.4, Absolute Monocytes 0.6, Absolute Eosinophils 0, Absolute Basophils 0 Microbiology 08/20 1240 STOOL: Clostridium difficile Toxin A & B - RECD Assessment/Plan Assessment: 42-year-old gentleman with past medical history of hyperlipidemia came to [facility] with complaints of nausea, vomiting, diarrhea for the past 3 weeks previously found to have positive Campylobacter stool culture presenting for sepsis and presumed gastroenterology infection. A: Respiratory: No issues Infection: #Sepsis 2/2 to presumed GI infectious origin Patient having nausea, vomiting and diarrhea for the past 3 weeks. Found to be Campylobacter positive in his stool. Patient's C. difficile negative. Second C. difficile sent. His repeat stool culture upon admission still close Campylobacter. Patient says his nausea and vomiting is improved. Though he still has diarrhea. His CAT scan revealed diffuse colitis. Patient was seen by iron worker apprentice who suggested to advance his diet to clear liquids and possible sigmoidoscopy tomorrow if his C. difficile is negative. -Follow-up C. difficile, stool culture, ova and parasites. -Continue vancomycin, metronidazole, azithromycin. Pt received ceftriaxone x1 for possible e.coli. -cont bentyle until dirrhea improves -cont IVF, strict I/O, -Patient blood pressure today 96/64. Continue IV fluids. - cont monitoring vitals -Renal cysts - Renal cysts fround on CT abd. Currently asymptomatic. -NEGRA - resolved -Elevated ALT in the setting of hepatic cysts CT revealed hepatic cysts. Patient presenting with initial ALT of 137. Repeat ALT is 107. HIV test negative. Follow-up hepatitis panel House keeping: FULL CODE Clear liquid Problem List: 1. Sepsis 2. Nausea, vomiting, and diarrhea 3. Abdominal pain 4. Infectious colitis Pain Ratin Pain Location: Abdominal pain Pain Goal: Remain pain free Pain Plan: Vanessayl Tomorrow's Labs & Rationales: CBC, BEP Toño POZO,Lashonda 08/21/17 1147: Attending MD Review Statement Attending Statement Attending MD Statement: examined this patient, discuss w/resident/PA/COMBINE DRIVER, agreed w/resident/PA/COMBINE DRIVER, reviewed EMR data (avail), discussed with nursing, discussed with case mgmt, reviewed images, amended to note Attending Assessment/Plan: Patient seen and examined, still having diarrhea. BP remains on low side. Pt remains on IVfs. Stool cx positive for Campylobacter. Vital Signs Date Time Temp Pulse Resp B/P B/P Pulse O2 O2 Flow FiO2 Mean Ox Delivery Rate 08/21 0637 98.2 82 18 96/64 93 08/20 2210 91.0 91 20 90/68 93 Room Air 08/20 1821 98.7 88 20 110/60 94 Room Air 08/20 1636 98.5 82 20 90/50 94 Room Air on exam; aox3, nad. cv; s1, s2, rrr resp; clear abd; soft, mildly tender, bs+ ext; no edema Laboratory Tests 08/21 0610 Chemistry Sodium (137 - 145 mmol/L) 141 Potassium (3.5 - 5.1 mmol/L) 3.5 Chloride (98 - 107 mmol/L) 105 Carbon Dioxide (22 - 30 mmol/L) 26 Anion Gap (5 - 16) 10 BUN (9 - 20 mg/dL) 6 L Creatinine (0.7 - 1.2 mg/dL) 0.8 Estimated GFR (>60 ml/min) > 60 Glucose (65 - 99 mg/dL) 88 Calcium (8.4 - 10.2 mg/dL) 8.2 L Phosphorus (2.5 - 4.5 mg/dL) 2.8 Magnesium (1.6 - 2.3 mg/dL) 1.9 Total Bilirubin (0.2 - 1.3 mg/dL) 0.6 AST (17 - 59 U/L) 27 ALT (21 - 72 U/L) 80 H Albumin (3.5 - 5.0 g/dL) 2.8 L Hematology CBC w Diff NO MAN DIFF REQ WBC (4.8 - 10.8 /CUMM) 7.5 RBC (4.70 - 6.10 /CUMM) 4.11 L Hgb (14.0 - 18.0 G/DL) 12.2 L Hct (42 - 52 %) 37.1 L MCV (80.0 - 94.0 FL) 90.3 MCH (27.0 - 31.0 PG) 29.8 MCHC (33.0 - 37.0 G/DL) 33.0 RDW (11.5 - 14.5 %) 14.0 Plt Count (130 - 400 /CUMM) 174 MPV (7.4 - 10.4 FL) 8.5 Gran % (42.2 - 75.2 %) 72.5 Lymphocytes % (20.5 - 51.1 %) 18.5 L Monocytes % (1.7 - 9.3 %) 8.3 Eosinophils % (0 - 5 %) 0.4 Basophils % (0.0 - 2.0 %) 0.3 Absolute Granulocytes (1.4 - 6.5 /CUMM) 5.4 Absolute Lymphocytes (1.2 - 3.4 /CUMM) 1.4 Absolute Monocytes (0.10 - 0.60 /CUMM) 0.6 Absolute Eosinophils (0.0 - 0.7 /CUMM) 0 Absolute Basophils (0.0 - 0.2 /CUMM) 0 A/P: 42-year-old male with past medical history significant for hyperlipidemia admitted with septic shock and pancolitis. Stool cultures positive for Campylobacter and stool for C. difficile is still pending. Patient currently getting treated with oral vancomycin, IV Flagyl as well as azithromycin. We'll follow-up on the stool for C. difficile studies. Continue IV fluids. Appreciate GI input. Patient was started on clear liquid diet today. DVT px; ALPS.
--- NOTE | 2017-08-21 11:04 | Cons- Gastroenterology ---
General Information and HPI Consulting Request Date of Consult: 08/21/17 Requested By: Lashonda Lundberg MD Reason for Consult: Diarrhea Colitis Allergies/Medications Allergies: Coded Allergies: meperidine (From DEMEROL) (Intermediate, HIVES 08/10/17) Home Med List: Atorvastatin Calcium 40 MG TABLET 1 TAB PO DAILY chol (Reported) Cholecalciferol (Vitamin D3) 1,000 UNIT TABLET 1 TAB PO DAILY VITAMIN SUPPORT (Reported) Cyanocobalamin (Vitamin B-12) 1,000 MCG TABLET 1 TAB PO DAILY VITAMIN SUPPORT (Reported) Current Medications: Current Medications Sig/Luli Start time Last Medication Dose Route Stop Time Status Admin Acetaminophen 1,000 MG Q6P PRN 08/19 2130 AC 08/20 IV 0625 Azithromycin 500 MG DAILY 08/20 899 AC 08/21 Sodium Chloride 250 ML IV 0943 Dextrose/Lactated 1,000 ML Q10H 08/20 1145 AC 08/21 Ringer's IV 0432 Dicyclomine HCl 20 MG 4 TIMES/DAY 08/20 0155 AC 08/20 PO 2104 Lactated Ringer's 1,000 ML .Q5H 08/19 2100 DC 08/20 IV 1128 Metronidazole 500 MG IQ8 08/20 0000 AC 08/21 N/A 1 UNIT IV 0756 Ondansetron HCl 4 MG ONCE ONE 08/20 2300 DC 08/20 IV 08/20 2301 2258 Trimethobenzamide HCl 200 MG 4 TIMES/DAY PRN 08/19 2000 AC IM Vancomycin HCl 500 MG Q6 08/19 2359 AC 08/21 PO 0535 Past History Travel History Traveled to [place] past 21 day No Medical History Blood Transfusion Hx: No Neurological: NONE EENT: NONE Cardiovascular: HIGH CHOLESTEROL Respiratory: NONE Gastrointestinal: NONE Hepatic: NONE Renal: NONE Musculoskeletal: NONE Psychiatric: NONE Endocrine: NONE Blood Disorders: NONE Cancer(s): NONE GOVERNMENT RELATIONS MANAGER/Reproductive: NONE Surgical History Surgical History: 1 Family History Relations & Conditions If Any: Relation not specified for: *No pertinent family history Psychosocial History Where Do You Live? Home Who Do You Live With? spouse Services at Home: None Primary Language: Indonesian Smoking Status: Former Smoker ETOH Use: occasional use Functional Ability ADLs Independent: dressing, eating, toileting, bathing. Ambulation: independent IADLs Independent: shopping, housework, finances, food prep, telephone, transportation , medication admin. Exam & Diagnostic Data Vital Signs and I&O Vital Signs Date Time Temp Pulse Resp B/P B/P Pulse O2 O2 Flow FiO2 Mean Ox Delivery Rate 08/21 0637 98.2 82 18 96/64 93 08/20 2210 91.0 91 20 90/68 93 Room Air 08/20 1821 98.7 88 20 110/60 94 Room Air 08/20 1636 98.5 82 20 90/50 94 Room Air Intake & Output 08/21 0400 08/20 04008/19 0400 Intake Total 200 823 0520 4300 0 Output Total 600 400 805 0 0 Balance 300 -90 5504 4300 0 Intake, IV 141 292 0213 4300 Intake, Oral 0 80 0 0 Number 0 201 0 Bowel Movements Output, Stool 3 Output, Urine 600 400 802 0 0 Patient 180 lb 190 lb Weight Weight Bed scale Measurement Method Physical Exam: Abdomen mildly distended/soft, with hyperactive bowel sounds; no tenderness, mass or organomegaly. Results Pertinent Lab Results: Laboratory Tests 08/21 08/20 0610 0610 Chemistry Sodium (137 - 145 mmol/L) 141 139 Potassium (3.5 - 5.1 mmol/L) 3.5 4.1 Chloride (98 - 107 mmol/L) 105 108 H Carbon Dioxide (22 - 30 mmol/L) 26 22 Anion Gap (5 - 16) 10 8 BUN (9 - 20 mg/dL) 6 L 9 Creatinine (0.7 - 1.2 mg/dL) 0.8 0.9 Estimated GFR (>60 ml/min) > 60 > 60 Glucose (65 - 99 mg/dL) 88 104 H Calcium (8.4 - 10.2 mg/dL) 8.2 L 8.4 Phosphorus (2.5 - 4.5 mg/dL) 2.8 2.9 Magnesium (1.6 - 2.3 mg/dL) 1.9 1.8 Total Bilirubin (0.2 - 1.3 mg/dL) 0.6 0.8 Direct Bilirubin (< 0.4 mg/dL) 0.3 AST (17 - 59 U/L) 27 33 ALT (21 - 72 U/L) 80 H 107 H Alkaline Phosphatase (< 127 U/L) 55 Total Protein (6.3 - 8.2 g/dL) 5.7 L Albumin (3.5 - 5.0 g/dL) 2.8 L 3.1 L Hematology CBC w Diff NO MAN DIFF REQ MAN DIFF ORDERED WBC (4.8 - 10.8 /CUMM) 7.5 11.4 H RBC (4.70 - 6.10 /CUMM) 4.11 L 4.58 L Hgb (14.0 - 18.0 G/DL) 12.2 L 13.6 L Hct (42 - 52 %) 37.1 L 40.6 L MCV (80.0 - 94.0 FL) 90.3 88.6 MCH (27.0 - 31.0 PG) 29.8 29.7 MCHC (33.0 - 37.0 G/DL) 33.0 33.5 RDW (11.5 - 14.5 %) 14.0 13.5 Plt Count (130 - 400 /CUMM) 174 222 MPV (7.4 - 10.4 FL) 8.5 7.7 Gran % (42.2 - 75.2 %) 72.5 83.7 H Lymphocytes % (20.5 - 51.1 %) 18.5 L 11.0 L Monocytes % (1.7 - 9.3 %) 8.3 5.0 Eosinophils % (0 - 5 %) 0.4 0.1 Basophils % (0.0 - 2.0 %) 0.3 0.2 Absolute Granulocytes (1.4 - 6.5 /CUMM) 5.4 9.5 H Segmented Neutrophils (42.2 - 75.2 %) 79 H Absolute Lymphocytes (1.2 - 3.4 /CUMM) 1.4 1.2 Lymphocytes (20.5 - 51.1 %) 14 L Monocytes (1.7 - 9.3 %) 7 Absolute Monocytes (0.10 - 0.60 /CUMM) 0.6 0.6 Absolute Eosinophils (0.0 - 0.7 /CUMM) 0 0 Absolute Basophils (0.0 - 0.2 /CUMM) 0 0 Platelet Estimate (ADEQUATE) ADEQUATE Normocytic RBCs VERIFIED Normochromic RBCs VERIFIED Other Body Source Fld Total RBCs Counted (%) 100 08/2008 08/19 0105 1931 1600 Chemistry Lactic Acid (0.7 - 2.1 mmol/L) 0.6 L 1.4 Coagulation PT (9.4 - 12.5 SEC) 16.5 H INR (0.90 - 1.17) 1.51 H APTT (25 - 37 SEC) 23 L Serology HIV 1&2 Ab Western Blot Cancelled 08/19 1402 Chemistry Sodium (137 - 145 mmol/L) 140 Potassium (3.5 - 5.1 mmol/L) 4.1 Chloride (98 - 107 mmol/L) 102 Carbon Dioxide (22 - 30 mmol/L) 24 Anion Gap (5 - 16) 14 BUN (9 - 20 mg/dL) 16 Creatinine (0.7 - 1.2 mg/dL) 1.3 H Estimated GFR (>60 ml/min) > 60 BUN/Creatinine Ratio (7 - 25 %) 12.3 Glucose (65 - 99 mg/dL) 129 H Lactic Acid (0.7 - 2.1 mmol/L) 1.8 Calcium (8.4 - 10.2 mg/dL) 8.1 L Total Bilirubin (0.2 - 1.3 mg/dL) 1.1 AST (17 - 59 U/L) 41 ALT (21 - 72 U/L) 137 H Alkaline Phosphatase (< 127 U/L) 63 Lactate Dehydrogenase (313 - 618 U/L) 569 Total Protein (6.3 - 8.2 g/dL) 6.0 L Albumin (3.5 - 5.0 g/dL) 3.4 L Globulin (1.9 - 4.2 gm/dL) 2.6 Albumin/Globulin Ratio (1.1 - 2.2 %) 1.3 Amylase (30 - 110 U/L) 87 Lipase (23 - 300 U/L) 98 Hematology CBC w Diff MAN DIFF ORDERED WBC (4.8 - 10.8 /CUMM) 19.7 H RBC (4.70 - 6.10 /CUMM) 4.96 Hgb (14.0 - 18.0 G/DL) 15.1 Hct (42 - 52 %) 44.5 MCV (80.0 - 94.0 FL) 89.6 MCH (27.0 - 31.0 PG) 30.4 MCHC (33.0 - 37.0 G/DL) 33.9 RDW (11.5 - 14.5 %) 13.5 Plt Count (130 - 400 /CUMM) 227 MPV (7.4 - 10.4 FL) 8.1 Gran % (42.2 - 75.2 %) 94.5 H Lymphocytes % (20.5 - 51.1 %) 2.7 L Monocytes % (1.7 - 9.3 %) 2.7 Eosinophils % (0 - 5 %) 0 Basophils % (0.0 - 2.0 %) 0.1 Absolute Granulocytes (1.4 - 6.5 /CUMM) 18.6 H Segmented Neutrophils (42.2 - 75.2 %) 78 H Band Neutrophils (0.0 - 5.0 %) 16 H Absolute Lymphocytes (1.2 - 3.4 /CUMM) 0.5 L Lymphocytes (20.5 - 51.1 %) 4 L Monocytes (1.7 - 9.3 %) 1 L Absolute Monocytes (0.10 - 0.60 /CUMM) 0.5 Absolute Eosinophils (0.0 - 0.7 /CUMM) 0 Basophils (0.0 - 2.0 %) 1 Absolute Basophils (0.0 - 0.2 /CUMM) 0 Platelet Estimate (ADEQUATE) ADEQUATE Normocytic RBCs VERIFIED Normochromic RBCs VERIFIED Serology Hepatitis A IgM Ab (NONREACTIVE) NONREACTIVE Hep Bs Antigen (NONREACTIVE) NONREACTIVE Hep B Core IgM Ab Conf (NONREACTIVE) NONREACTIVE Hepatitis C Antibody (NONREACTIVE) NONREACTIVE HIV 1&2 Ab Western Blot (NONREACTIVE) NONREACTIVE Imaging/Other Studies: CT scan of the abdomen and pelvis: IMPRESSION: 1. Diffusely abnormal colon with diffuse mural thickening and mucosal hyperenhancement and mesenteric hyperemia extending from the rectum to the ileocecal valve. Findings are consistent with a diffuse colitis: infectious, inflammatory or possibly antibiotic associated colitis. Pseudomembranous colitis may be possible as well in the correct clinical setting. Close clinical correlation requested. 2. Mild mucosal hyperenhancement of the terminal most ileum is seen without bowel wall thickening, likely reactive. 3. Hepatic and left renal lesions, most consistent with cysts. 4. Small fat-containing umbilical hernia. Assessment/Plan Assessment/Recommendations: Acute diarrheal disorder with pancolitis. At this point the disorder can be termed subacute heading towards chronic. The patient presented with evidence of SIRS/sepsis. The possibility exists that this is an extended/fluoroquinolone resistant Campylobacter infection which has progressed to colitis. Must also consider immunosuppression. Awaiting C. difficile toxin/PCR to determine if there has been superimposed C. difficile associated colitis. Finally, although less likely, would need to consider clinical penetration of previously silent IBD. Clinically the patient is improving in terms pain and nausea, and leukocytosis. He has persistent diarrhea. Recommendations * Await C. difficile toxin/ PCR * Continue current antibiotic management as per infectious disease (azithromycin , vancomycin) * May need to consider flexible sigmoidoscopy/biopsy * Begin clear liquid diet * Serial exams to assess for abdominal distention Consult Acknowledgment - Thank you for your consult request.
--- NOTE | 2017-08-21 13:31 | PN- Infect Dx ---
Subjective Subjective: Afebrile. He feels improved with no further nausea or vomiting but he continues to report watery, green stools and headache. Objective Last 24 Hrs of Vital Signs/I&O Vital Signs Date Time Temp Pulse Resp B/P B/P Pulse O2 O2 Flow FiO2 Mean Ox Delivery Rate 08/21 0637 98.2 82 18 96/64 93 08/20 2210 91.0 91 20 90/68 93 Room Air 08/20 1821 98.7 88 20 110/60 94 Room Air 08/20 1636 98.5 82 20 90/50 94 Room Air Intake & Output 08/21 1600 08/21 0800 08/21 0000 Intake Total 900 310 Output Total 600 400 Balance 300 -90 Intake, IV 900 310 Intake, Oral 0 Number 1 0 Bowel Movements Output, Urine 600 400 Physical Exam Other Physical Findings: He appears comfortable in no acute distress Lungs are clear Heart regular rhythm without murmur Abdomen is soft, mildly tender diffusely on palpation, with no guarding or rebound, positive bowel sounds Back no CVA tenderness Extremities no cyanosis, clubbing or edema Results Last 24 Hours of Lab Results: Laboratory Tests 08/21 609 Chemistry Sodium (137 - 145 mmol/L) 141 Potassium (3.5 - 5.1 mmol/L) 3.5 Chloride (98 - 107 mmol/L) 105 Carbon Dioxide (22 - 30 mmol/L) 26 Anion Gap (5 - 16) 10 BUN (9 - 20 mg/dL) 6 L Creatinine (0.7 - 1.2 mg/dL) 0.8 Estimated GFR (>60 ml/min) > 60 Glucose (65 - 99 mg/dL) 88 Calcium (8.4 - 10.2 mg/dL) 8.2 L Phosphorus (2.5 - 4.5 mg/dL) 2.8 Magnesium (1.6 - 2.3 mg/dL) 1.9 Total Bilirubin (0.2 - 1.3 mg/dL) 0.6 AST (17 - 59 U/L) 27 ALT (21 - 72 U/L) 80 H Albumin (3.5 - 5.0 g/dL) 2.8 L Hematology CBC w Diff NO MAN DIFF REQ WBC (4.8 - 10.8 /CUMM) 7.5 RBC (4.70 - 6.10 /CUMM) 4.11 L Hgb (14.0 - 18.0 G/DL) 12.2 L Hct (42 - 52 %) 37.1 L MCV (80.0 - 94.0 FL) 90.3 MCH (27.0 - 31.0 PG) 29.8 MCHC (33.0 - 37.0 G/DL) 33.0 RDW (11.5 - 14.5 %) 14.0 Plt Count (130 - 400 /CUMM) 174 MPV (7.4 - 10.4 FL) 8.5 Gran % (42.2 - 75.2 %) 72.5 Lymphocytes % (20.5 - 51.1 %) 18.5 L Monocytes % (1.7 - 9.3 %) 8.3 Eosinophils % (0 - 5 %) 0.4 Basophils % (0.0 - 2.0 %) 0.3 Absolute Granulocytes (1.4 - 6.5 /CUMM) 5.4 Absolute Lymphocytes (1.2 - 3.4 /CUMM) 1.4 Absolute Monocytes (0.10 - 0.60 /CUMM) 0.6 Absolute Eosinophils (0.0 - 0.7 /CUMM) 0 Absolute Basophils (0.0 - 0.2 /CUMM) 0 Last 24 Hours of Hany Results: Stool C. difficile August 20 negative Stool culture August 19 positive for Campylobacter species Blood cultures 2 August 19 negative Assessment/Plan ID Impression: Overall improved, with temperatures and white blood cell count now normal, though he continues to have diarrhea. He remains on empiric treatment for fulminant C. difficile, Day 2 of high-dose oral Vancomycin and IV Flagyl, though his stool C. difficile toxin is now negative 2, and Azithromycin Day 2 (after 4 days of Ciprofloxacin as an outpatient) for possible Campylobacter colitis, with his stool again positive for Campylobacter, though it is not clear if this reflects previous or persistent infection and Campylobacter colitis is unusual in an immunocompetent host. Suggestion: 1. Await stool PCR for C. difficile (has been sent out) 2. Continue p.o. Vancomycin, IV Flagyl and IV Azithromycin pending above
[2017-08-21 14:11] VITALS: BP 100/74
[2017-08-21 22:05] VITALS: BP 104/86
[2017-08-22 01:36] LABS: C.DIFFICILE TOXIN B QL PCR NOT DETECTED (NOT DETECTED)
[2017-08-22 06:49] VITALS: BP 110/80
--- NOTE | 2017-08-22 07:29 | Discharge Summary ---
Visit Information Visit Dates Admission Date: 08/19/17 Discharge Date: 08/23/17 Hospital Course Course Attending Physician: Lashonda Lundberg MD Primary Care Physician: Reagan POZO,Hugo Coon Hospital Course: Assessment: 42-year-old gentleman with past medical history of hyperlipidemia came to [facility] with complaints of nausea, vomiting, diarrhea for the past 3 weeks previously found to have positive Campylobacter stool culture presenting for sepsis and presumed gastroenterology infection initially admitted to ICU for sepsis refractory to fluids and then transferred to general medicine as he was stabilized. Problems: #Sepsis 2/ to GI infectious origin The patient has had nausea vomiting and diarrhea for the past several weeks. He describes the diarrhea as cholorphyll green. Stated that one of his dogs was positive for giardia. Was previously seen in the [place] ER on August 10 and was sent home with ciprofloxacin and Flagyl. Ciprofloxacin was discontinued per his PCP. Admission vitals were Tmax 103.0, pulse rate 127, blood pressure 82/47, 91% on RA. Initial labs revealed WBC 19.7, granulocytes 94.5, band neutrophils 16. Lactic acid was initially negative. Initial CT abd revealed diffuse colitis, mucosal hyperenhancement at the terminal ileum likely reactive, hepatic and left renal lesions consistent with cysts. He was admitted for sepsis to the ICU as his BP did not respond to 4L of NS. He was started on vancomycin, metronidazole, azithromycin and ceftriaxone x1. His fluids were then switched to D5WLR maintenance. As his status improved, he was transferred to general medicine. His leukocytosis improved with continued antibiotics Stool cultures currently mixed alvin, with Shiga toxin negative. Stool was positive for Campylobacter. Usually Campylobacter infection self-limiting but since he came in with shock patient was treated with antibiotics. He was initially NPO and his diet was advanced as tolerated. Bentyl was given for abd pain. Patient nausea, abdominal pain and diarrhea improved well in general medical floor. Patient was treated with vancomycin and azithromycin and Patient nausea, abdominal pain and diarrhea improved well in general medical floor. Patient was seen by infectious disease who suggested to continue the current management and treatment for 10-14 days total. Patient treated for possible Campylobacter/C. difficile infection. #Hypotension The patient had BP in the 80s/40s upon admission which did not respond to 4L as stated above. As his antibiotics were continued and he improved, his BP also improved. Most likely the hypotension were secondary to sepsis and GI fluid loss. He was continued on D5WLR for fluid support. Patient encouraged to take oral fluids. #NEGRA - resolved The patient presented with a creatinine of 1.3 which improved after fluids. Discharge creatinine was 0.8. #Lymphopenia Initially presented with 2.7 lymphocytes. Unclear causes. HIV was negative. #Renal cysts Renal cysts fround on CT abd. Currently asymptomatic. Will require outpatient follow up. -Outpatient follow-up #Elevated ALT in the setting of hepatic cysts CT revealed hepatic cysts. Patient presenting with initial ALT of 137. Repeat ALT was elevated but downtrending. Unclear cause. HIV and hepatitis panel were negative. Chest x-ray IMPRESSION: Mild bibasilar subsegmental atelectasis. CT abdomen and pelvis 1. Diffusely abnormal colon with diffuse mural thickening and mucosal hyperenhancement and mesenteric hyperemia extending from the rectum to the ileocecal valve. Findings are consistent with a diffuse colitis: infectious, inflammatory or possibly antibiotic associated colitis. Pseudomembranous colitis may be possible as well in the correct clinical setting. Close clinical correlation requested. 2. Mild mucosal hyperenhancement of the terminal most ileum is seen without bowel wall thickening, likely reactive. 3. Hepatic and left renal lesions, most consistent with cysts. 4. Small fat-containing umbilical hernia. Allergies: Coded Allergies: meperidine (From DEMEROL) (Intermediate, HIVES 08/10/17) Disposition Summary Disposition Principal Diagnosis: Septic shock. Campylobacter infection Additional Diagnosis: Empirically treated for C. difficile Discharge Disposition: home or self care Discharge Instructions General Discharge Information Code Status: Full Code Patient's Diet: Regular diet as tolerated Patient's Activity: As tolerated Follow-Up Instructions/Appts: Please follow-up with your primary care provider/sheet metal superintendent within 1-2 weeks of discharge and let them know about your recent admission at [facility]. Medications at Discharge Discharge Medications: Continue taking these medications: Cholecalciferol (Vitamin D3) 1,000 UNIT TABLET 1 Tablet ORAL DAILY Comments: NOT GIVEN IN HOSPITAL Cyanocobalamin (Vitamin B-12) 1,000 MCG TABLET 1 Tablet ORAL DAILY Comments: NOT GIVEN IN HOSPITAL Atorvastatin Calcium (Atorvastatin Calcium) 40 MG TABLET 1 Tablet ORAL DAILY Qty = 30 Comments: NOT GIVEN IN HOSPITAL Start taking the following new medications: Azithromycin (Azithromycin) 500 MG TABLET 1 Tablet ORAL DAILY Qty = 9 No Refills Instructions: . Comments: GIVEN IV IN HOSPITAL Last Taken:08/23/17 Time:8:45 AM Vancomycin HCl (Vancomycin HCl) 900 MCG/MG (NOT LESS THAN, ASSISTED) POWDER 125 Milligram ORAL EVERY SIX HOURS Qty = 22 No Refills Instructions: . Comments: Last Taken:08/23/17 Time:12:28 PM Copies To: Reagan POZO,Hugo Coon Attending MD Review Statement Documenting Attending: Saji Bae MD Other Findings: 08/23/2017 4:32:36 PM I was contacted by a retail pharmacist regarding the patient's discharge prescription for vancomycin. Apparently vancomycin was written for 125 mg every 6 hourly for 22 doses in a powdered form. I have reviewed the patient's infectious disease consultation and have recommended/ authorized the pharmacist to fill vancomycin 125 mg P0 every 6 hours for 7 days (tablets dispensed).
[2017-08-22 08:00] LABS: ABSOLUTE BASOPHIL COUNT 0 /CUMM (0.0-0.2); ABSOLUTE EOSINOPHIL COUNT 0 /CUMM (0.0-0.7); ABSOLUTE GRANULOCYTE CT 3.4 /CUMM (1.4-6.5); ABSOLUTE LYMPH COUNT 1.3 /CUMM (1.2-3.4); ABSOLUTE MONOCYTE COUNT 0.4 /CUMM (0.10-0.60); BASOPHIL % 0.4 % (0.0-2.0); EOSINOPHIL % 0.8 % (0-5); GRANULOCYTE % 64.9 % (42.2-75.2); HEMATOCRIT 39.2 % (42-52); MEAN CORPUSCULAR HGB CONC 33.8 G/DL (33.0-37.0); MEAN CORPUSCULAR VOLUME 88.9 FL (80.0-94.0); PLATELET COUNT 214 /CUMM (130-400); RBC DISTRIBUTION WIDTH 13.6 % (11.5-14.5); RED BLOOD CELL CT 4.41 /CUMM (4.70-6.10); WHITE BLOOD CELL COUNT 5.2 /CUMM (4.8-10.8)
--- NOTE | 2017-08-22 08:41 | PN- Housestaff ---
Subjective Follow-up For: infectious diarrhea Complaints: no complaints Subjective: Patient seen and examined at bedside. No overnight events. Patient feels that this abdominal pain is 1 x 10 today. No more diarrhea. Patient feels that he is getting better. Review of Systems Constitutional: Reports: no symptoms, see HPI. Objective Last 24 Hrs of Vital Signs/I&O Vital Signs Date Time Temp Pulse Resp B/P B/P Pulse O2 O2 Flow FiO2 Mean Ox Delivery Rate 08/22 0649 97.3 82 20 110/80 93 Room Air 08/21 2205 98.2 70 18 104/86 96 Room Air 08/21 1411 98.3 96 18 100/74 93 Intake & Output 08/22 1600 08/22 0800 08/22 0000 Intake Total 600 600 Output Total 400 Balance 600 200 Intake, IV 600 Intake, Oral 0 600 Number 0 Bowel Movements Output, Stool 400 Physical Exam General Appearance: Alert, Oriented X3, Cooperative, No Acute Distress Cardiovascular: Regular Rate, Normal S1, Normal S2, No Murmurs Lungs: Clear to Auscultation Abdomen: Soft, No Tenderness, No Hepatospenomegaly Neurological: Normal Speech, Strength at 5/5 X4 Ext, Normal Tone, Sensation Intact Extremities: No Cyanosis, No Edema, Normal Pulses Current Medications: Current Medications Sig/Luli Start time Last Medication Dose Route Stop Time Status Admin Acetaminophen 1,000 MG Q6P PRN 08/19 2130 AC 08/20 IV 0625 Azithromycin 500 MG DAILY 08/20 09 08/22 Sodium Chloride 250 ML IV 0940 Benzocaine/Menthol 1 SIDRA Q2P PRN 08/21 2045 AC 08/21 PO 2203 Dextrose/Lactated 1,000 ML Q10H 08/20 1145 DC 08/22 Ringer's IV 0543 Dicyclomine HCl 20 MG 4 TIMES/DAY 08/20 0155 AC 08/20 PO 2104 Metronidazole 500 MG IQ8 08/20 0000 DC 08/22 N/A 1 UNIT IV 0828 Trimethobenzamide HCl 200 MG 4 TIMES/DAY PRN 08/19 2000 AC IM Vancomycin HCl 125 MG Q6 08/22 1800 AC PO Vancomycin HCl 500 MG Q6 08/19 2359 DC 08/22 PO 1236 Last 24 Hrs of Lab/Hayn Results Last 24 Hrs of Labs/Mics: Laboratory Tests 08/22/17 0705: Anion Gap 10, Estimated GFR > 60, BUN/Creatinine Ratio 5.0 L, CBC w Diff NO MAN DIFF REQ, RBC 4.41 L, MCV 88.9, MCH 30.0, MCHC 33.8, RDW 13.6, MPV 8.0, Gran % 64.9, Lymphocytes % 25.6, Monocytes % 8.3, Eosinophils % 0.8, Basophils % 0.4, Absolute Granulocytes 3.4, Absolute Lymphocytes 1.3, Absolute Monocytes 0.4, Absolute Eosinophils 0, Absolute Basophils 0 Assessment/Plan Assessment: 42-year-old gentleman with past medical history of hyperlipidemia came to [place] [facility] with complaints of nausea, vomiting, diarrhea for the past 3 weeks previously found to have positive Campylobacter stool culture presenting for sepsis and presumed gastroenterology infection. Infectious diarrhea: Patient was having nausea, vomiting and diarrhea for the past 3 weeks. Found to be Campylobacter positive in his stool. Patient's C. difficile negative including PCR. His repeat stool culture upon admission still positive Campylobacter. Patient says his nausea and vomiting is improved. No more episodes of diarrhea since midnight. His CAT scan revealed diffuse colitis. Gastroenterology is not planning for any procedures since the patient C. difficile was negative and also clinically is improved. We will advance his diet to full liquids and if he tolerates we will give him regular diet. Patient was seen by infectious disease doctor who suggested to discontinue Flagyl, continue azithromycin and vancomycin at a reduced dose of 125 by mouth. -cont bentyle until dirrhea improves -Discontinue IV fluids. -Patient blood pressure improving. Today blood pressure 110/80. - cont monitoring vitals -Renal cysts - Renal cysts fround on CT abd. Currently asymptomatic. -NEGRA - resolved -Elevated ALT in the setting of hepatic cysts House keeping: FULL CODE Clear liquid Problem List: 1. Infectious colitis Pain Ratin Pain Location: Abdomen Pain Goal: Remain pain free Pain Plan: Tylenol Tomorrow's Labs & Rationales: CBC, BEP
--- NOTE | 2017-08-22 09:53 | Patient Discharge Instructions ---
Discharge Instructions General Discharge Information You were seen/treated for: Infectitous diarrhea Watch for these problems: In case of nausea, vomiting, abdominal pain, dizziness please go to the nearest emergency room Special Instructions: Please follow-up with your primary care provider, clinical nutritionist within 1-2 weeks of discharge. Diet Continue normal diet: Yes Recommended Diet: Regular Activity Full Activity/No Limits: No Activity Self Limited: Yes Acute Coronary Syndrome Inclusion Criteria At DC or during hospital stay patient has or had the following: ACS DIAGNOSIS No Discharge Core Measures Meds if any: Prescribed or Continued at Discharge Meds if any: NOT Prescribed or Continued at Discharge Congestive Heart Failure Inclusion Criteria At DC or during hospital stay patient has or had the following: CHF DIAGNOSIS No Discharge Core Measures Meds if any: Prescribed or Continued at Discharge Meds if any: NOT Prescribed or Continued at Discharge Cerebrovascular accident Inclusion Criteria At DC or during hospital stay patient has or had the following: CVA/TIA Diagnosis No Discharge Core Measures Meds if any: Prescribed or Continued at Discharge Meds if any: NOT Prescribed or Continued at Discharge Venous thromboembolism Inclusion Criteria VTE Diagnosis No VTE Type NONE VTE Confirmed by (Test) NONE Discharge Core Measures - Per Current guidelines, there needs to be overlap - treatment for the first 5 days of Warfarin therapy. - If discharged on Warfarin prior to 5 days of - overlap therapy, the patient will need to be - assessed for post discharge needs including - *Post discharge parental anticoagulation - *Warfarin and/or parental anticoagulation education - *Follow up date to check INR post discharge At least 5 days overlap therapy as Inpatient No Meds if any: Prescribed or Continued at Discharge Note: Overlap Therapy is Warfarin and Anticoagulant Meds if any: NOT Prescribed or Continued at Discharge
--- NOTE | 2017-08-22 11:46 | PN- Att Addend ---
Attending Addendum Attending Brief Note Patient seen and examined, she says that he's feeling tired. He is upset this morning because he hasn't had his breakfast. He's feeling hungry. I discussed with Dr. Turcios from GI and there is no procedures planned. Diarrhea improved. Denies any abd pain. Vital Signs Date Time Temp Pulse Resp B/P B/P Pulse O2 O2 Flow FiO2 Mean Ox Delivery Rate 08/22 0649 97.3 82 20 110/80 93 Room Air 08/21 2205 98.2 70 18 104/86 96 Room Air 08/21 1411 98.3 96 18 100/74 93 on exam; aox3, nad. cv; s1,s2, rrr resp; clear abd; soft, nt, bs+ ext; no edema Laboratory Tests 08/22 07 Chemistry Sodium (137 - 145 mmol/L) 141 Potassium (3.5 - 5.1 mmol/L) 3.7 Chloride (98 - 107 mmol/L) 105 Carbon Dioxide (22 - 30 mmol/L) 26 Anion Gap (5 - 16) 10 BUN (9 - 20 mg/dL) 4 L Creatinine (0.7 - 1.2 mg/dL) 0.8 Estimated GFR (>60 ml/min) > 60 BUN/Creatinine Ratio (7 - 25 %) 5.0 L Hematology CBC w Diff NO MAN DIFF REQ WBC (4.8 - 10.8 /CUMM) 5.2 RBC (4.70 - 6.10 /CUMM) 4.41 L Hgb (14.0 - 18.0 G/DL) 13.3 L Hct (42 - 52 %) 39.2 L MCV (80.0 - 94.0 FL) 88.9 MCH (27.0 - 31.0 PG) 30.0 MCHC (33.0 - 37.0 G/DL) 33.8 RDW (11.5 - 14.5 %) 13.6 Plt Count (130 - 400 /CUMM) 214 MPV (7.4 - 10.4 FL) 8.0 Gran % (42.2 - 75.2 %) 64.9 Lymphocytes % (20.5 - 51.1 %) 25.6 Monocytes % (1.7 - 9.3 %) 8.3 Eosinophils % (0 - 5 %) 0.8 Basophils % (0.0 - 2.0 %) 0.4 Absolute Granulocytes (1.4 - 6.5 /CUMM) 3.4 Absolute Lymphocytes (1.2 - 3.4 /CUMM) 1.3 Absolute Monocytes (0.10 - 0.60 /CUMM) 0.4 Absolute Eosinophils (0.0 - 0.7 /CUMM) 0 Absolute Basophils (0.0 - 0.2 /CUMM) 0 A/P: 42-year-old male with past medical history significant for hyperlipidemia admitted with septic shock and pancolitis. Stool cultures positive for Campylobacter. Stool PCR neg for Cdiff. Will discuss with infectious disease about the antibiotics. Since no procedures planned today, will start the patient on full liquid diet and advance to solids as he tolerates. We will continue to monitor him today and make sure that he tolerates his diet. Final antibiotics recommendations will be discussed with infectious disease. If patient tolerates full liquid diet then likely we can stop his IV fluids.
--- NOTE | 2017-08-22 11:54 | PN- Infect Dx ---
Subjective Subjective: Afebrile. He feels improved with his last episode of diarrhea 12 hours ago. He does note some "rumbling" in his stomach and feels hungry. Objective Last 24 Hrs of Vital Signs/I&O Vital Signs Date Time Temp Pulse Resp B/P B/P Pulse O2 O2 Flow FiO2 Mean Ox Delivery Rate 08/22 0649 97.3 82 20 110/80 93 Room Air 08/21 2205 98.2 70 18 104/86 96 Room Air 08/21 1411 98.3 96 18 100/74 93 Intake & Output 08/22 1600 08/22 0800 08/22 0000 Intake Total 600 600 Output Total 400 Balance 600 200 Intake, IV 600 Intake, Oral 0 600 Number 0 Bowel Movements Output, Stool 400 Physical Exam Other Physical Findings: He appears well in no acute distress Abdomen is soft, nontender with positive bowel sounds Extremities no cyanosis, clubbing or edema Results Last 24 Hours of Lab Results: Laboratory Tests 08/22 0705 Chemistry Sodium (137 - 145 mmol/L) 141 Potassium (3.5 - 5.1 mmol/L) 3.7 Chloride (98 - 107 mmol/L) 105 Carbon Dioxide (22 - 30 mmol/L) 26 Anion Gap (5 - 16) 10 BUN (9 - 20 mg/dL) 4 L Creatinine (0.7 - 1.2 mg/dL) 0.8 Estimated GFR (>60 ml/min) > 60 BUN/Creatinine Ratio (7 - 25 %) 5.0 L Hematology CBC w Diff NO MAN DIFF REQ WBC (4.8 - 10.8 /CUMM) 5.2 RBC (4.70 - 6.10 /CUMM) 4.41 L Hgb (14.0 - 18.0 G/DL) 13.3 L Hct (42 - 52 %) 39.2 L MCV (80.0 - 94.0 FL) 88.9 MCH (27.0 - 31.0 PG) 30.0 MCHC (33.0 - 37.0 G/DL) 33.8 RDW (11.5 - 14.5 %) 13.6 Plt Count (130 - 400 /CUMM) 214 MPV (7.4 - 10.4 FL) 8.0 Gran % (42.2 - 75.2 %) 64.9 Lymphocytes % (20.5 - 51.1 %) 25.6 Monocytes % (1.7 - 9.3 %) 8.3 Eosinophils % (0 - 5 %) 0.8 Basophils % (0.0 - 2.0 %) 0.4 Absolute Granulocytes (1.4 - 6.5 /CUMM) 3.4 Absolute Lymphocytes (1.2 - 3.4 /CUMM) 1.3 Absolute Monocytes (0.10 - 0.60 /CUMM) 0.4 Absolute Eosinophils (0.0 - 0.7 /CUMM) 0 Absolute Basophils (0.0 - 0.2 /CUMM) 0 Last 24 Hours of Hany Results: Stool C. difficile PCR negative Blood cultures August 19 negative Assessment/Plan ID Impression: Continues to improve, with temperatures and white blood cell count remaining normal and with decreased diarrhea, now Day 3 of empiric treatment for fulminant C. difficile (with high-dose oral Vancomycin and IV Flagyl) and Day 3 of Azithromycin (after 4 days of Ciprofloxacin as an outpatient) for possible Campylobacter colitis, with his stool again positive for Campylobacter. As his C. difficile PCR is negative, C. difficile seems unlikely and suspect that his colitis is secondary to Campylobacter though, admittedly, this is an unusual manifestation in an immunocompetent host. The possibility that the PCR is a false negative secondary to previous treatment (initially p.o. Flagyl and, since admission, IV Flagyl and p.o. Vanco) could be considered and, therefore, it may be reasonable to complete a course of treatment with oral Vancomycin for possible C. difficile. Suggestion: 1. Discontinue Special Contact isolation 2. Discontinue IV Flagyl 3. Decrease Vancomycin to 125 mg p.o. every 6 hours and continue for 7 more days 4. Continue IV Azithromycin but would change to 500 mg p.o. every 24 hours upon discharge to complete a 10-14 day course of treatment Dr. Molina will be covering over the weekend
[2017-08-22 14:35] VITALS: BP 96/66
--- NOTE | 2017-08-22 15:49 | Discharge Summary ---
Hospital Course Allergies: Coded Allergies: meperidine (From DEMEROL) (Intermediate, HIVES 08/10/17) Discharge Instructions Medications at Discharge Discharge Medications: Continue taking these medications: Cholecalciferol (Vitamin D3) 1,000 UNIT TABLET 1 Tablet ORAL DAILY Comments: NOT GIVEN IN HOSPITAL Cyanocobalamin (Vitamin B-12) 1,000 MCG TABLET 1 Tablet ORAL DAILY Comments: NOT GIVEN IN HOSPITAL Atorvastatin Calcium (Atorvastatin Calcium) 40 MG TABLET 1 Tablet ORAL DAILY Qty = 30 Comments: NOT GIVEN IN HOSPITAL Start taking the following new medications: Azithromycin (Azithromycin) 500 MG TABLET 1 Tablet ORAL DAILY Qty = 9 No Refills Instructions: . Comments: GIVEN IV IN HOSPITAL Last Taken:08/23/17 Time:8:45 AM Vancomycin HCl (Vancomycin HCl) 900 MCG/MG (NOT LESS THAN, NURSING HOME) POWDER 125 Milligram ORAL EVERY SIX HOURS Qty = 22 No Refills Instructions: . Comments: Last Taken:08/23/17 Time:12:28 PM
[2017-08-22 21:34] VITALS: BP 110/82
--- NOTE | 2017-08-22 23:36 | PN- Gastroenterology ---
Assessment/Plan GI Assessment/Recommendations: (*I took over the GI inpt service 08/22/17. The patient was seen and examined. Records reviewed. Dr. Omi Bae's GI consult of 08/21/17 appreciated). 42 y/o male, without previous colonoscopy, w/o significant PMHx, admitted to [place] 08/19/17, after being diagnosed with Campylobacter enteritis on an ER visit 08/10/17, after presenting with 1 week of diarrhea, nausea, vomiting, and headache. He was initially treated with Cipro & Flagyl x 4 days with initial improvement, but was then admitted 08/19/17 with worsening diarrhea, fever, chills, hypotension, tachycardia, leukocytosis with left shift, mild NEGRA, and elevated LFTs, along with recurrent nausea, vomiting, and headache. Interestingly, his dog was recently diagnosed with Giardia. He was somewhat lymphopenic, with HIV negative. Stool for C. difficile 2 was negative, as was 08/20/17: C. diff PCR. He had a pancolitis on admission CT. The patient was empirically treated for C. difficile with IV Flagyl & po Vancomycin, along with Azithromycin for the Campylobacter. Although numerous C. difficile/C. diff PCR were negative as above, as the patient may have been partially treated with Flagyl prior to admission, ID felt that po Vancomycin should be empirically continued, along with Azithromycin. IV Flagyl was D/C'd 08/22/17, as were contact isolation. *Considerations were for possible flexible sigmoidoscopy, but the patient's symptoms were much improved on 08/22/17. He had no diarrhea all day. There was no rectal bleeding. He was tolerating solid food. He denied any fevers or chills. 08/10/17: stool C&S: + Campylobacter species; reminder of C&S- neg, Shiga toxin- neg, Yersinia- neg, Vibrio- neg 08/19/17: Hep A Ab, Hep Bs Ag, Hep B core Ab, Hep C Ab- all neg; HIV- neg; nl lactate, nl lipase. 08/20/17: PT 16.5, INR 1.51, PTT 23 08/20/17: alb 3.1, glob 2.6, TBil 0.8, DBil 0.3, alk phos 55, AST 33, ALT 107 08/21/17: alb 2.8, TBil 0.6, AST 27, ALT 80 08/22/17: WBC 5.2, H/H 13.3/39.2, nl MCV, nl RDW, PLT 214, BUN/Cr 4/0.8, GFR > 60, Na 141, K 3.7, HCO3 26, AG 10. 08/19/17: BC X 2- neg. 08/19/17: stool C&S: + Campylobacter species; *C. diff toxin A & B- neg, Shiga toxin- neg. 08/20/17: *C. diff toxin A & B- neg. 08/20/17: *C. diff toxin B PCR- neg. 08/19/17: EKG- ST @ 107, nl axis, nl intervals. 08/19/17: XRY-CHEST XRAY, TWO VIEWS- Mild bibasilar subsegmental atelectasis. 08/19/17: CT ABD & PELVIS W IV CONTRAST- 1. Diffusely abnormal colon with diffuse mural thickening and mucosal hyperenhancement and mesenteric hyperemia extending from the rectum to the ileocecal valve. Findings are consistent with a diffuse colitis: infectious, inflammatory or possibly antibiotic associated colitis. Pseudomembranous colitis may be possible as well in the correct clinical setting. Close clinical correlation requested. 2. Mild mucosal hyperenhancement of the terminal most ileum is seen without bowel wall thickening, likely reactive. 3. Hepatic and left renal lesions, most consistent with cysts. 4. Small fat-containing umbilical hernia. *SUGGEST- *Agree with ID in tx Campylobacter with IV Azithromycin, to be changed to 500 mg po Q24h upon D/C for 10-14 day course of tx, along with empiric Vancomycin 125 mg po Q6h x 7 more days (? if partially txd C. diff). The mildly elevated LFTs were probably reactive in nature, & were improving. Mobilize patient as tolerated. Regular diet as tolerated (may need low residue). Follow-up with Dr. Mana Bae as outpt to consider a baseline colonoscopy (doubt development of IBD, post infx diarrhea). Further GI recommendations to follow, depending on clinical course Problem List: 1. Diarrhea 2. Campylobacter enteritis 3. Pancolitis 4. Malnutrition 5. Elevated LFTs 6. Umbilical hernia without obstruction and without gangrene 7. Liver cyst Subjective Subjective: *As of 08/22/17, the patient was feeling much better. He tolerated solids po. He had no diarrhea all day. He denied any nausea or vomiting. His abdominal cramps were much improved. There was no GI bleeding. He denied any fevers or chills. He was hemodynamically stable & afebrile, with O2 sat RA 95%. Review of Systems: Full 14 point ROS otherwise noncontributory & as above Review of Systems GI Reports: diarrhea gone Cardiovascular: Denies: chest pain. Respiratory: Denies: short of breath. Genitourinary: Reports: no symptoms. Musculoskeletal: Reports: joint pain (left knee). All Other Systems: Reviewed and Negative Objective Vital Signs and I&Os Vital Signs Date Time Temp Pulse Resp B/P B/P Pulse O2 O2 Flow FiO2 Mean Ox Delivery Rate 08/22 2134 98.1 93 18 110/82 95 Room Air 08/22 1435 98.7 77 18 96/66 93 Room Air 08/22 0649 97.3 82 20 110/80 93 Room Air Intake & Output 08/23 0400 08/22 1600 08/22 0400 08/21 1600 08/21 0400 08/20 1600 Intake Total 600 9194 985 1748 310 6309 Output Total 400 600 400 805 Balance 600 2364 209 3414 - 5504 Intake, IV 1000 1048 334 3122 Intake, Oral 600 900 600 900 0 80 Number 0 1 1 0 201 Bowel Movements Output, Stool 400 3 Output, Urine 600 400 802 Patient 180 lb Weight Physical Exam: Well-developed, well-nourished male, non-toxic appearing, in no apparent distress. Sclera anicteric. Conjunctiva pink. Oropharynx clear. No oral thrush. No aphthous ulcers. There is no adenopathy, thyromegaly, or JVD. No peripheral stigmata of inflammatory bowel disease or chronic liver disease on exam. No spiders on the anterior chest wall. No gynecomastia. No CVA tenderness. Lungs: clear to A&P. No wheezing, rales, or rhonchi. Heart exam: regular rate rhythm, S1 and S2, without any murmur. Abdominal exam: hyperactive bowel sounds, soft belly, minimally distended, minimal left-mid tenderness, without guarding or rebound. Reducible small umbilical hernia. Otherwise, no mass. No organomegaly. No fluid shift. No pulsatile mass. No epigastric bruit. Clinically, without megacolon. Digital rectal exam: deferred at present. Extremities: without C, C, or E. No palpable cords. No rash. No acute arthropathy. No palmar erythema. No Dupuytren's contractures. Distal pulses 2+ bilaterally. DTRs 2+ bilaterally. Alert and oriented x 3. Motor 5/5 B/L. No tremor. No asterixis. Current Medications: Current Medications Sig/Luli Start time Last Medication Dose Route Stop Time Status Admin Acetaminophen 1,000 MG Q6P PRN 08/19 2130 AC 08/20 IV 0625 Azithromycin 500 MG DAILY 08/20 0900 AC 08/22 Sodium Chloride 250 ML IV 0940 Benzocaine/Menthol 1 SIDRA Q2P PRN 08/21 2045 AC 08/21 PO 2203 Dextrose/Lactated 1,000 ML Q10H 08/20 1145 DC 08/22 Ringer's IV 0543 Dicyclomine HCl 20 MG 4 TIMES/DAY 08/20 0155 AC 08/20 PO 2104 Metronidazole 500 MG IQ8 08/20 0000 DC 08/22 N/A 1 UNIT IV 0828 Trimethobenzamide HCl 200 MG 4 TIMES/DAY PRN 08/19 2000 AC IM Vancomycin HCl 125 MG Q6 08/22 1800 AC 08/22 PO 2359 Vancomycin HCl 500 MG Q6 08/19 2359 DC 08/22 PO 1236 Results Pertinent Lab Results: Laboratory Tests 08/22 08/21 0705 0610 Chemistry Sodium (137 - 145 mmol/L) 141 141 Potassium (3.5 - 5.1 mmol/L) 3.7 3.5 Chloride (98 - 107 mmol/L) 105 105 Carbon Dioxide (22 - 30 mmol/L) 26 26 Anion Gap (5 - 16) 10 10 BUN (9 - 20 mg/dL) 4 L 6 L Creatinine (0.7 - 1.2 mg/dL) 0.8 0.8 Estimated GFR (>60 ml/min) > 60 > 60 BUN/Creatinine Ratio (7 - 25 %) 5.0 L Glucose (65 - 99 mg/dL) 88 Calcium (8.4 - 10.2 mg/dL) 8.2 L Phosphorus (2.5 - 4.5 mg/dL) 2.8 Magnesium (1.6 - 2.3 mg/dL) 1.9 Total Bilirubin (0.2 - 1.3 mg/dL) 0.6 AST (17 - 59 U/L) 27 ALT (21 - 72 U/L) 80 H Albumin (3.5 - 5.0 g/dL) 2.8 L Hematology CBC w Diff NO MAN DIFF REQ NO MAN DIFF REQ WBC (4.8 - 10.8 /CUMM) 5.2 7.5 RBC (4.70 - 6.10 /CUMM) 4.41 L 4.11 L Hgb (14.0 - 18.0 G/DL) 13.3 L 12.2 L Hct (42 - 52 %) 39.2 L 37.1 L MCV (80.0 - 94.0 FL) 88.9 90.3 MCH (27.0 - 31.0 PG) 30.0 29.8 MCHC (33.0 - 37.0 G/DL) 33.8 33.0 RDW (11.5 - 14.5 %) 13.6 14.0 Plt Count (130 - 400 /CUMM) 214 174 MPV (7.4 - 10.4 FL) 8.0 8.5 Gran % (42.2 - 75.2 %) 64.9 72.5 Lymphocytes % (20.5 - 51.1 %) 25.6 18.5 L Monocytes % (1.7 - 9.3 %) 8.3 8.3 Eosinophils % (0 - 5 %) 0.8 0.4 Basophils % (0.0 - 2.0 %) 0.4 0.3 Absolute Granulocytes (1.4 - 6.5 /CUMM) 3.4 5.4 Absolute Lymphocytes (1.2 - 3.4 /CUMM) 1.3 1.4 Absolute Monocytes (0.10 - 0.60 /CUMM) 0.4 0.6 Absolute Eosinophils (0.0 - 0.7 /CUMM) 0 0 Absolute Basophils (0.0 - 0.2 /CUMM) 0 0 08/20 08/20 1240 0610 Chemistry Sodium (137 - 145 mmol/L) 139 Potassium (3.5 - 5.1 mmol/L) 4.1 Chloride (98 - 107 mmol/L) 108 H Carbon Dioxide (22 - 30 mmol/L) 22 Anion Gap (5 - 16) 8 BUN (9 - 20 mg/dL) 9 Creatinine (0.7 - 1.2 mg/dL) 0.9 Estimated GFR (>60 ml/min) > 60 Glucose (65 - 99 mg/dL) 104 H Calcium (8.4 - 10.2 mg/dL) 8.4 Phosphorus (2.5 - 4.5 mg/dL) 2.9 Magnesium (1.6 - 2.3 mg/dL) 1.8 Total Bilirubin (0.2 - 1.3 mg/dL) 0.8 Direct Bilirubin (< 0.4 mg/dL) 0.3 AST (17 - 59 U/L) 33 ALT (21 - 72 U/L) 107 H Alkaline Phosphatase (< 127 U/L) 55 Total Protein (6.3 - 8.2 g/dL) 5.7 L Albumin (3.5 - 5.0 g/dL) 3.1 L Hematology CBC w Diff MAN DIFF ORDERED WBC (4.8 - 10.8 /CUMM) 11.4 H RBC (4.70 - 6.10 /CUMM) 4.58 L Hgb (14.0 - 18.0 G/DL) 13.6 L Hct (42 - 52 %) 40.6 L MCV (80.0 - 94.0 FL) 88.6 MCH (27.0 - 31.0 PG) 29.7 MCHC (33.0 - 37.0 G/DL) 33.5 RDW (11.5 - 14.5 %) 13.5 Plt Count (130 - 400 /CUMM) 222 MPV (7.4 - 10.4 FL) 7.7 Gran % (42.2 - 75.2 %) 83.7 H Lymphocytes % (20.5 - 51.1 %) 11.0 L Monocytes % (1.7 - 9.3 %) 5.0 Eosinophils % (0 - 5 %) 0.1 Basophils % (0.0 - 2.0 %) 0.2 Absolute Granulocytes (1.4 - 6.5 /CUMM) 9.5 H Segmented Neutrophils (42.2 - 75.2 %) 79 H Absolute Lymphocytes (1.2 - 3.4 /CUMM) 1.2 Lymphocytes (20.5 - 51.1 %) 14 L Monocytes (1.7 - 9.3 %) 7 Absolute Monocytes (0.10 - 0.60 /CUMM) 0.6 Absolute Eosinophils (0.0 - 0.7 /CUMM) 0 Absolute Basophils (0.0 - 0.2 /CUMM) 0 Platelet Estimate (ADEQUATE) ADEQUATE Normocytic RBCs VERIFIED Normochromic RBCs VERIFIED Other Body Source Fld Total RBCs Counted (%) 100 Serology C. difficile Tox B Gene (NOT DETECTED) NOT DETECTED Imaging/Other Studies: 08/19/17: EKG- ST @ 107, nl axis, nl intervals. 08/19/17: XRY-CHEST XRAY, TWO VIEWS- Mild bibasilar subsegmental atelectasis. 08/19/17: CT ABD & PELVIS W IV CONTRAST- 1. Diffusely abnormal colon with diffuse mural thickening and mucosal hyperenhancement and mesenteric hyperemia extending from the rectum to the ileocecal valve. Findings are consistent with a diffuse colitis: infectious, inflammatory or possibly antibiotic associated colitis. Pseudomembranous colitis may be possible as well in the correct clinical setting. Close clinical correlation requested. 2. Mild mucosal hyperenhancement of the terminal most ileum is seen without bowel wall thickening, likely reactive. 3. Hepatic and left renal lesions, most consistent with cysts. 4. Small fat-containing umbilical hernia.
--- NOTE | 2017-08-23 05:38 | PN- Housestaff ---
Shahana POZO,Linda 08/23/17 0538: Subjective Follow-up For: Infectious diarrhea Subjective: Patient seen and examined at bedside. No overnight events. No further episodes of diarrhea. Denies nausea, vomiting, abdominal pain. Review of Systems Constitutional: Reports: no symptoms, see HPI. Objective Last 24 Hrs of Vital Signs/I&O Vital Signs Date Time Temp Pulse Resp B/P B/P Pulse O2 O2 Flow FiO2 Mean Ox Delivery Rate 08/23 0640 98.2 74 20 110/82 95 08/22 2134 98.1 93 18 110/82 95 Room Air 08/22 1435 98.7 77 18 96/66 93 Room Air Intake & Output 08/23 0800 08/23 0000 08/22 1600 Intake Total 600 1300 Output Total Balance 600 1300 Intake, IV 400 Intake, Oral 600 900 Number 0 1 Bowel Movements Physical Exam General Appearance: Alert, Oriented X3, Cooperative Cardiovascular: Regular Rate, Normal S1, Normal S2, No Murmurs Lungs: Clear to Auscultation Abdomen: Soft, No Tenderness, No Hepatospenomegaly Neurological: Normal Speech, Strength at 5/5 X4 Ext, Normal Tone, Sensation Intact, Cranial Nerves 3-12 NL Extremities: No Edema, Normal Pulses Current Medications: Current Medications Sig/Luli Start time Last Medication Dose Route Stop Time Status Admin Acetaminophen 1,000 MG Q6P PRN 08/19 2130 AC 08/20 IV 0625 Azithromycin 500 MG DAILY 08/20 0900 AC 08/22 Sodium Chloride 250 ML IV 0940 Benzocaine/Menthol 1 SIDRA Q2P PRN 08/21 2045 AC 08/21 PO 2203 Dextrose/Lactated 1,000 ML Q10H 08/20 1145 DC 08/22 Ringer's IV 0543 Dicyclomine HCl 20 MG 4 TIMES/DAY 08/20 0155 AC 08/20 PO 2104 Metronidazole 500 MG IQ8 08/20 0000 DC 08/22 N/A 1 UNIT IV 0828 Trimethobenzamide HCl 200 MG 4 TIMES/DAY PRN 08/19 2000 AC IM Vancomycin HCl 125 MG Q6 08/22 1800 AC 08/23 PO 0606 Vancomycin HCl 500 MG Q6 08/19 2359 DC 08/22 PO 1236 Last 24 Hrs of Lab/Hany Results Last 24 Hrs of Labs/Mics: Laboratory Tests 08/23/17 0740: Sodium Pending, Potassium Pending, Chloride Pending, Carbon Dioxide Pending, Anion Gap Pending, BUN Pending, Creatinine Pending, BUN/Creatinine Ratio Pending , CBC w Diff Pending, WBC Pending, RBC Pending, Hgb Pending, Hct Pending, MCV Pending, MCH Pending, MCHC Pending, RDW Pending, Plt Count Pending, MPV Pending Assessment/Plan Assessment: 42-year-old gentleman with past medical history of hyperlipidemia came to [place] ER with complaints of nausea, vomiting, diarrhea for the past 3 weeks previously found to have positive Campylobacter stool culture presenting for sepsis and presumed gastroenterology infection. Assessment and plan 1. Campylobacter enteritis 2. Suspected C. difficile infection Patient was having nausea, vomiting and diarrhea for the past 3 weeks. Found to be Campylobacter positive in his stool. Patient's C. difficile negative including PCR. Still high suspicion for C. difficile infection given that patient was treated with antibiotics in past 2 weeks. We will empirically treat with vancomycin for the same. His repeat stool culture upon admission still positive for Campylobacter. Patient says his nausea, diarrhea and vomiting is improved. No more episodes of diarrhea last 24 hours. His CAT scan revealed diffuse colitis. Gastroenterology is not planning for any procedures since the patient C. difficile was negative and also clinically is improved. Patient is on regular diet. Patient will be going home with azithromycin and vancomycin as prescribed. -Patient blood pressure is stable. Today blood pressure 110/82. - cont monitoring vitals -Renal cysts - Renal cysts fround on CT abd. Currently asymptomatic. -NEGRA - resolved -Elevated ALT in the setting of hepatic cysts House keeping: FULL CODE Regular diet Plan-discharge home self care Problem List: 1. Campylobacter enteritis Pain Ratin Pain Location: none Pain Goal: Remain pain free Pain Plan: Tylenol Tomorrow's Labs & Rationales: none Lashonda Lundberg MD 08/23/17 1504: Attending MD Review Statement Attending Statement Attending MD Statement: examined this patient, discuss w/resident/PA/BRANCH MANAGER TRAINEE, agreed w/resident/PA/BRANCH MANAGER TRAINEE, reviewed EMR data (avail), discussed with nursing, discussed with case mgmt, reviewed images, amended to note Attending Assessment/Plan: Patient seen and examined, overall feeling much better. Diarrhea has improved. Patient tolerating his diet well with abdominal pain. As discussed with infectious disease yesterday, will continue the treatment for Campylobacter as well as empirically for C. difficile. Patient otherwise medically stable for discharge home on oral antibiotics. He will follow-up with his primary care doctor and GI as an outpatient.
[2017-08-23] MEDS ORDERED: AZITHROMYCIN500 M3 PO ×2 (05:45→09:38)
[2017-08-23] MEDS ORDERED: VANCOMYCIN HCL5 G1 PO ×2 (05:46→09:38)
[2017-08-23 06:40] VITALS: BP 110/82
[2017-08-23 08:21] LABS: ABSOLUTE BASOPHIL COUNT 0 /CUMM (0.0-0.2); ABSOLUTE EOSINOPHIL COUNT 0.1 /CUMM (0.0-0.7); ABSOLUTE GRANULOCYTE CT 2.6 /CUMM (1.4-6.5); ABSOLUTE LYMPH COUNT 1.8 /CUMM (1.2-3.4); ABSOLUTE MONOCYTE COUNT 0.4 /CUMM (0.10-0.60); BASOPHIL % 0.4 % (0.0-2.0); EOSINOPHIL % 1.5 % (0-5); GRANULOCYTE % 53.5 % (42.2-75.2); HEMATOCRIT 41.6 % (42-52); MEAN CORPUSCULAR HGB 29.8 PG (27.0-31.0); MEAN CORPUSCULAR HGB CONC 33.7 G/DL (33.0-37.0); MEAN CORPUSCULAR VOLUME 88.7 FL (80.0-94.0); MEAN PLATELET VOLUME 8.1 FL (7.4-10.4); PLATELET COUNT 250 /CUMM (130-400); RBC DISTRIBUTION WIDTH 13.6 % (11.5-14.5); RED BLOOD CELL CT 4.69 /CUMM (4.70-6.10); WHITE BLOOD CELL COUNT 4.9 /CUMM (4.8-10.8)
== END 2017-08-23 12:45 | DRG 871 ==
LOC: ERH 13:20 → 2NB 16:11 → CRI 16:11 → ERHI 16:11 → ENRESERV 19:21 → CANRESERV 19:21 → EDBEDREQ 21:19 → ENRESERV 21:23 → ENTRNSPT 22:37 → EDTRNSPTSTS 22:41 → EDTRNSPT 22:41 → CRI 23:02 → CMPTRNSPT 08-20 07:38 → ENTRNSPT 08-20 17:39 → EDTRNSPTSTS 08-20 17:49 → EDTRNSPT 08-20 17:49 → 2NB 08-20 17:57 → CMPTRNSPT 08-20 18:07 → 2NB 08-21 08:17 → ENPENDDIS 08-23 09:46 → 2NB 08-23 12:45
PROVIDERS: Internal Medicine Infectious Disease; Physician Assistant Medical; Student in an Organized Health Care Education/Training Program
DX: A41.89 Other specified sepsis (principal); R65.21 Severe sepsis with septic shock; N17.9 Acute kidney failure, unspecified; D68.9 Coagulation defect, unspecified; A04.5 Campylobacter enteritis; N28.1 Cyst of kidney, acquired; E78.5 Hyperlipidemia, unspecified; D72.810 Lymphocytopenia; K76.89 Other specified diseases of liver; Z88.8 Allergy status to other drugs, medicaments and biological substances
CPT/HCPCS: 2NBP; 87493; CCU; 36415; 36592; 71046; 74177; 82436; 87040; 87045; 87328; 87329; 87389; 93005; 93010; 99291; J0131; J0456; J0500; J0696; J2405; J2550; J2765; J3250; J7040

== ENCOUNTER 2017-09-01 03:25 | Emergency (ER) | payer OTHER ==
[~2017-09-01 03:25] MED LIST changes: +AZITHROMYCIN500 M3 PO; +VANCOMYCIN HCL5 G1 PO
== END 2017-09-01 05:40 | disposition admitted as inpatient to this hospital (09) ==
LOC: ERH 03:25
DX: R11.2 Nausea with vomiting, unspecified (principal); R19.7 Diarrhea, unspecified; Z53.21 Procedure and treatment not carried out due to patient leaving prior to being seen by health care provider
CPT/HCPCS: 93005; 93010